=== PATIENT | male | born 1935 | race Caucasian/White ===

== ENCOUNTER 2019-01-14 14:14 | Emergency (ER) | payer MEDICARE ==
[~2019-01-14] VITALS: Ht 188 cm; Wt 87.1 kg
[~2019-01-14 14:14] MED LIST: BUPROPION HCL150 M2 PO; COQ-10100 MG PO; DOXAZOSIN MESYLA4 MG PO; LORAZEPAM1 MG PO; METFORMIN HCL500 MG PO; PANTOPRAZOLE SO40 MG PO; SIMVASTATIN20 MG PO; VITAMIN D1000 UNI1 PO
--- OUTSIDE RECORDS SUMMARY | 2019-01-14 14:18 | XMS REPORT | Summary of Care ---
Author Author [facility] Organization [facility] Address Unknown Phone Unavailable Encounter HQ Chidi(FIN) [id number] Date(s): 04/20/17 - 04/20/17 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 1right Allergies, Adverse Reactions, Alerts Substance Reaction Severity Status Cipro Active codeine Active Demerol HCl Active morphine Active propoxyphene Active Septra Active Medications No data available for this section Results No data available for this section Immunizations Given and Recorded Vaccine Date Status Refusal Reason influenza virus vaccine, inactivated 06/05/14 Given tetanus-diphtheria toxoids 01/21/11 Given Procedures Procedure Date Related Diagnosis Body Site Appendectomy CEIOL - Cataract extraction and insertion of intraocular lens1 Cystectomy2 Dilation of bladder3 Foot repair Hernia repair4 Vasectomy 1right and left 2excision of pilondial cyst 3hydrodistention 4umbilical Social History Social History Type Response Alcohol Past Smoking Status Former smoker; Type: Cigarettes; Started at age: 16.0; Stopped at age: 24; Exposure to Tobacco Smoke None; Cigarette Smoking Last 365 Days No; Reg Smoking Cessation Counseling No Assessment and Plan No data available for this section
--- OUTSIDE RECORDS SUMMARY | 2019-01-14 14:18 | XMS REPORT | Summary of Care ---
Author Organization Unknown Address Unknown Phone Unavailable Encounter HQ Kristan_quintin(AUGIE) [id number] Date(s): 03/23/14 - 03/23/14 [facility] [address] [place], [place] [address] [facility] Discharge Disposition: Home Physician Attending: Timmy Seaman MD Physician_Referring: Timmy Seaman MD Reason for Visit CKD 3 Problem List Condition Effective Dates Status Health Status Informant Anxiety(Confirmed) Active Chest Resolved pain(Confirmed) Diabetes Active mellitus(Confirmed) GERD Active (gastroesophageal reflux disease)(Confirmed) HTN - Active Hypertension(Confirm ed) Hyperlipemia(Confirm Active ed) Hypertonic Active bladder(Confirmed) Allergies, Adverse Reactions, Alerts Substance Reaction Severity Status Cipro Active codeine Active Demerol HCl Active methadone Active morphine Active propoxyphene Active Septra Active Medications No data available for this section Medications Administered During Your Visit No data available for this section Immunizations Vaccine Date Refusal Reason tetanus-diphtheria toxoids 01/21/11 Social History Social History Type Response Alcohol Use: Past Smoking Status Former smoker, Type: Cigarettes, Exposure to Tobacco Smoke None, Cigarette Smoking Last 365 Days No, Reg Smoking Cessation Counseling No
--- OUTSIDE RECORDS SUMMARY | 2019-01-14 14:18 | XMS REPORT | Summary of Care ---
Author Organization Unknown Address Unknown Phone Unavailable Encounter HQ Chidi(AUGIE) [id number] Date(s): 01/25/14 - 01/25/14 [facility] [address] [place], [place] [address] [facility] Discharge Disposition: Home Physician Attending: Carl Alarcon MD Physician_Referring: Carl Alarcon MD Reason for Visit ICD 600.00 596.51 788.31/CPT [id number] Vital Signs 1 2 3 Most recent to oldest [Reference Range]: 182.88 cm (01/18/14 10:14 AM) Height 97.0 DegF (01/18/14 10:50 AM) Temperature Oral [96.4-99.1 DegF] 111 mmHg (01/25/14 9:15 AM) 153 mmHg *HI* (01/25/14 9:00 AM) 179 mmHg *HI* (01/25/14 8:45 AM) Systolic Blood Pressure [90-140 mmHg] 86 mmHg (01/25/14 9:15 AM) 55 mmHg *LOW* (01/25/14 9:00 AM) 81 mmHg (01/25/14 8:45 AM) Diastolic Blood Pressure [60-90 mmHg] 11 BRMIN *LOW* (01/25/14 9:00 AM) 12 BRMIN *LOW* (01/25/14 8:45 AM) 13 BRMIN *LOW* (01/25/14 8:30 AM) Respiratory Rate [14-20 BRMIN] 77 bpm (01/25/14 7:23 AM) 69 bpm (01/18/14 10:50 AM) Peripheral Pulse Rate [60-100 bpm] 92.273 kg (01/18/14 10:14 AM) Weight 27.59 m2 (01/18/14 10:14 AM) Body Mass Index Problem List Condition Effective Dates Status Health Status Informant Anxiety(Confirmed) Active Chest Resolved pain(Confirmed) Diabetes Active mellitus(Confirmed) GERD Active (gastroesophageal reflux disease)(Confirmed) HTN - Active Hypertension(Confirm ed) Hyperlipemia(Confirm Active ed) Hypertonic Active bladder(Confirmed) Allergies, Adverse Reactions, Alerts Substance Reaction Severity Status Cipro Active codeine Active Demerol HCl Active methadone Active morphine Active propoxyphene Active Septra Active Medications acetaminophen 650 mg, 2 tab, Route: PO, Drug form: TAB, Q4H, Dosing Weight 92.273, kg, PRN [place] n 1-3/Temp > 100.4 F, Start date: 01/25/14 8:17:00, Duration: 30 day, Stop date: 02/24/14 8:16:00 Notes: Do not exceed 4 gm/day. (Same as: Tylenol) Start Date: 01/25/14 Stop Date: 01/25/14 Status: Discontinued cefTRIAXone 1 gm, Route: IVPB, ONCE, Dosing Weight 92.273, kg, Start date: 01/25/14 7:21:00, Stop date: 01/25/14 7:21:00 Start Date: 01/25/14 Stop Date: 01/25/14 Status: Completed ketorolac 15 mg, 1 mL, Route: IVP, Drug form: INJ, Q6H, Dosing Weight 92.273, kg, Start da te: 01/25/14 12:00:00, Duration: 6 doses or times, Stop date: 01/26/14 18:00:00 Notes: (Same as:Toradol) IV bolus must be given >15 seconds. Give IM administration slowly and deeply into the muscle. Not for use > 4 days. Start Date: 01/25/14 Stop Date: 01/25/14 Status: Discontinued Lactated Ringers Injection IV 1000 mL 1,000 mL, Rate: 25 ml/hr, Infuse over: 40 hr, Route: IV, Dosing Weight 92.273 kg , Total Volume: 1,000, Start date: 01/25/14 7:22:00, Duration: 30 day, Stop date : 02/24/14 7:21:00 Start Date: 01/25/14 Stop Date: 01/25/14 Status: Discontinued Results ELECTROLYTES Most recent to 1 oldest [Reference Range]: Sodium Lvl [135-145 140 mEq/L mEq/L] (01/18/14 10:45 AM) Potassium Lvl 4.4 mEq/L [3.5-5.1 mEq/L] (01/18/14 10:45 AM) Chloride Lvl [95-109 106 mEq/L mEq/L] (01/18/14 10:45 AM) CO2 [24-32 mEq/L] 25 mEq/L (01/18/14 10:45 AM) AGAP [10.0-20.0 13.4 mEq/L mEq/L] (01/18/14 10:45 AM) CHEM PANEL Most recent to 1 oldest [Reference Range]: Creatinine Lvl 1.3 mg/dL [0.5-1.4 mg/dL] (01/18/14 10:45 AM) eGFR 52 mL/min/1.73m2 1 *NA* (01/18/14 10:45 AM) BUN [7-22 mg/dL] 17 mg/dL (01/18/14 10:45 AM) Glucose Lvl [70-99 109 mg/dL 2 mg/dL] *HI* (01/18/14 10:45 AM) Calcium Lvl 8.7 mg/dL [8.5-10.5 mg/dL] (01/18/14 10:45 AM) 1Result Comment: The eGFR is calculated using the CKD-EPI formula. In most young, healthy individuals the eGFR will be >90 mL/min/1.73m2. The eGFR declines with age. An eGFR of 60-89 may be normal in some populations, particularly the elderly, for whom the CKD-EPI formula has not been extensively validated. Use of the eGFR is not recommended in the following populations: Individuals with unstable creatinine concentrations, including patients and those with serious co-morbid conditions. Patients with extremes in muscle mass or diet. The data above are obtained from the National Kid[employer] Disease Education Program ( NKDEP) which additionally recommends that when the eGFR is used in patients with extremes of body mass index for purposes of drug dosing, the eGFR should be mul tiplied by the estimated BMI. 2Interpretive Data: Adult reference range values reflect the clinical guidelines of the [employer] [place] [employer]. SPECIAL CHEMISTRY Most recent to 1 oldest [Reference Range]: PSA [0.00-4.00 1.48 ng/mL 3 ng/mL] (01/18/14 10:45 AM) 3Interpretive Data: 0-4 ng/ml is clinically accepted reference range from the [employer] in 1997 for Total PSA. A PSA value in the range of 0.1 to 0.6 ng/mL is indeterminate if being used as an indicator of recurrent or residual disease. URINE AND STOOL Most recent to 1 oldest [Reference Range]: UA Turbidity [Clear] Clear (01/18/14 10:15 AM) UA Color Ltyellow *NA* (01/18/14 10:15 AM) UA pH [5.0-8.0] 5.0 (01/18/14 10:15 AM) UA Spec Grav 1.015 [<=1.030] (01/18/14 10:15 AM) UA Glucose [Negative Negative mg/dL mg/dL] *NA* (01/18/14 10:15 AM) UA Blood [Negative] Negative (01/18/14 10:15 AM) UA Ketones [Negative Negative mg/dL mg/dL] *NA* (01/18/14 10:15 AM) UA Protein [Negative Negative mg/dL mg/dL] (01/18/14 10:15 AM) UA Urobilinogen <=1.0 mg/dL [0.1-1.0 mg/dL] *NA* (01/18/14 10:15 AM) UA Bili [Negative] Negative *NA* (01/18/14 10:15 AM) UA Leuk Est Negative [Negative] (01/18/14 10:15 AM) UA Nitrite Negative [Negative] (01/18/14 10:15 AM) UA WBC [0-5 /HPF] <1 /HPF (01/18/14 10:15 AM) UA RBC [0-2 /HPF] 1 /HPF (01/18/14 10:15 AM) UA Sq Epi None Seen *NA* (01/18/14 10:15 AM) HEMATOLOGY Most recent to 1 oldest [Reference Range]: WBC [3.7-10.4 K/CMM] 5.2 K/CMM (01/18/14 10:45 AM) RBC [4.70-6.10 4.21 M/CMM M/CMM] *LOW* (01/18/14 10:45 AM) Hgb [14.0-18.0 g/dL] 13.6 g/dL *LOW* (01/18/14 10:45 AM) Hct [42.0-54.0 %] 39.9 % *LOW* (01/18/14 10:45 AM) MCV [80.0-94.0 fL] 94.6 fL *HI* (01/18/14 10:45 AM) MCH [27.0-31.0 pg] 32.2 pg *HI* (01/18/14 10:45 AM) MCHC [32.0-36.0 34.0 g/dL g/dL] (01/18/14 10:45 AM) RDW [11.5-14.5 %] 12.6 % (01/18/14 10:45 AM) Platelet [133-450 196 K/CMM K/CMM] (01/18/14 10:45 AM) MPV [7.4-10.4 fL] 8.4 fL (01/18/14 10:45 AM) Segs [45.0-75.0 %] 66.3 % (01/18/14 10:45 AM) Lymphocytes 19.7 % [20.0-40.0 %] *LOW* (01/18/14 10:45 AM) Monocytes [2.0-12.0 9.9 % %] (01/18/14 10:45 AM) Eosinophils [0.0-4.0 3.4 % %] (01/18/14 10:45 AM) Basophils [0.0-1.0 0.7 % %] (01/18/14 10:45 AM) Segs-Bands # 3.5 K/CMM [1.5-8.1 K/CMM] (01/18/14 10:45 AM) Lymphocytes # 1.0 K/CMM [1.0-5.5 K/CMM] (01/18/14 10:45 AM) Monocytes # [0.0-0.8 0.5 K/CMM K/CMM] (01/18/14 10:45 AM) Eosinophils # 0.2 K/CMM [0.0-0.5 K/CMM] (01/18/14 10:45 AM) Basophils # [0.0-0.2 0.0 K/CMM K/CMM] (01/18/14 10:45 AM) Medications Administered During Your Visit No data available for this section Immunizations Vaccine Date Refusal Reason tetanus-diphtheria toxoids 01/21/11 Social History Social History Type Response Alcohol Use: Past Smoking Status Former smoker, Type: Cigarettes, Exposure to Tobacco Smoke None, Cigarette Smoking Last 365 Days No, Reg Smoking Cessation Counseling No
--- OUTSIDE RECORDS SUMMARY | 2019-01-14 14:18 | XMS REPORT | Continuity of Care Document ---
Author Author Lisa maria elena [facility] Interface Address Unknown Phone Unavailable Problems Problem Status Onset Date Classification Date Reported Comments Source CHEST PAIN Active 07/12/2018 [facility] Pain in left wrist 04/28/2018 11/08/2018 [facility] M25.539 Active 04/21/2018 [facility] R10.9 K40.90 Active 04/14/2017 [facility] DX: C64.1=MALIGNANT NEOPLASM OF RIGHT K Active 09/16/2016 [facility] C64.1 Active 08/20/2015 [facility] ABD PAIN/KIDNEY CA Active 01/04/2015 [facility] 189.0 RENAL CA Active 08/14/2014 [facility] Discharge Diagnosis: Polyuria 07/02/2014 07/05/2014 [facility] BACK PAIN Active 07/02/2014 [facility] UNK Active 05/09/2014 [facility] POST-OP RIGHT ROBOTIC PARTIAL NEPHRECTOM Active 05/09/2014 [facility] CHRONIC KIDNEY DISEAGE STAGE 3 Active 04/24/2014 [facility] 585.3 CHR KIDNEY DIS STAGE III Active 04/05/2014 [facility] CKD 3 Active 03/14/2014 [facility] ICD 600.00 596.51 788.31/CPT 20058 34386 Active 01/09/2014 [facility] Anxiety Active Problem 11/08/2018 [facility] Chest pain Resolved Problem 11/08/2018 [facility] Diabetes mellitus Active Problem 11/08/2018 [facility] GERD (<span ID="[id number]">Confirmed</span>) Active Problem 11/08/2018 [facility] HTN - Hypertension Active Problem 11/08/2018 [facility] Hyperlipemia Active Problem 08/28/2015 [facility] Hypertonic bladder Active Problem 11/08/2018 [facility] Hyperlipemia Active Problem 11/08/2018 [facility] Renal mass<sup>1</sup> Active Problem 11/08/2018 [facility] Other specified soft tissue disorders 11/08/2018 [facility] Other cyst of bone, other site 11/08/2018 [facility] SIMRAN KIDNEY Active [facility] LEFT ARM, WRIST Active [facility] MALIGNANT NEOPLASM OF RIGHT KIDNEY, EXCE Active [facility] URGENCY OF URINATION Active [facility] BENIGN PROSTATIC HYPERPLASIA WITH LOWER Active [facility] UNSPECIFIED ABDOMINAL PAIN Active [facility] UNIL INGUINAL HERNIA, W/O OBST OR GANGR, Active [facility] Medications Medication Details Route Status Patient Instructions Ordering Provider Order Date Source Senna S oral tablet 2 tab, PO, Bedtime, # 90 tab, 0 Refill(s) Active 06/05/2014 [facility] Acetaminophen 325 MG / Hydrocodone Bitartrate 5 MG Oral Tablet [Dodge 5/325] 1 tab, PO, Q4-6H, as needed for pain, # 30 tab, 0 Refill(s) Active 06/05/2014 [facility] Calcium Chloride 0.0014 MEQ/ML / Potassium Chloride 0.004 MEQ/ML / Sodium Chloride 0.103 MEQ/ML / Sodium Lactate 0.028 MEQ/ML Injectable Solution 1,000 mL, Rate: 125 ml/hr, Infuse over: 8 hr, Route: IV, Dosing Weight 87.727 kg, Total Volume: 1,000, Start date: 06/04/14 11:13:00, Duration: 30 day, Stop date: 07/04/14 11:12:00 Inactive 06/04/2014 [facility] Doxazosin 4 mg, 1 tab, Route: PO, Drug form: TAB, Daily, Dosing Weight 87.727, kg, Start date: 06/01/14 9:00:00, Duration: 30 day, Stop date: 06/30/14 9:00:00Notes: (Same as: Sam) No Longer Active 06/01/2014 [facility] sennosides, ALF 8.6 MG Oral Tablet 17.2 mg, 2 tab, Route: PO, Drug Form: TAB, Dosing Weight 87.727, kg, BID, Start date: 06/01/14 9:00:00, Duration: 30 day, Stop date: 06/30/14 17:00:00Notes: (Same as: Senokot) No Longer Active 06/01/2014 [facility] Enoxaparin 40 mg, 0.4 mL, Route: SUB-Q, Drug form: INJ, Daily, Dosing Weight 87.727, kg, Start date: 06/01/14 6:00:00, Duration: 30 day, Stop date: 06/30/14 6:00:00Notes: (Same as: Lovenox) No Longer Active 06/01/2014 [facility] Simvastatin 20 mg, 1 tab, Route: PO, Drug form: TAB, Bedtime, Dosing Weight 87.727, kg, Start date: 05/31/14 21:00:00, Duration: 30 day, Stop date: 06/29/14 21:00:00Notes: (Same as: Zocor) No Longer Active 06/01/2014 [facility] Docusate Sodium 100 MG Oral Capsule 100 mg, 1 cap, Route: PO, Drug form: CAP, BID, Dosing Weight 87.727, kg, Start date: 05/31/14 17:00:00, Duration: 30 day, Stop date: 06/30/14 9:00:00Notes: (Same as: Colace) (Do Not Crush) No Longer Active 05/31/2014 [facility] pantoprazole 40 mg, 1 tab, Route: PO, Drug form: ECTAB, Before Dinner, Dosing Weight 87.727, kg, Start date: 05/31/14 16:30:00, Duration: 30 day, Stop date: 06/29/14 16:30:00Notes: Tablet should not be chewed or crushed. (Same as: Protonix) No Longer Active 05/31/2014 [facility] Restoril 7.5 mg, 1 cap, Route: PO, Drug form: CAP, Bedtime, PRN Insomnia, Start date: 05/31/14 16:17:00, Duration: 30 day, Stop date: 06/30/14 16:16:00Notes: (Same As: Restoril) No Longer Active 05/31/2014 [facility] 10 ML Cefazolin 100 MG/ML Prefilled Syringe 1 gm, 100 mL, Route: IVPB, Drug form: INJ, Q8H, Dosing Weight 87.727, kg, Start date: 05/31/14 16:00:00, Duration: 1 doses or times, Stop date: 05/31/14 16:00:00 Inactive 05/31/2014 [facility] Insulin, Regular, Pork 5 unit, Route: IV, ONCE, Dosing Weight 87.727, kg, Start date: 05/31/14 13:54:00, Stop date: 05/31/14 13:54:00 Inactive 05/31/2014 [facility] Ancef 2 gm, Route: IVPB, ONCE, Dosing Weight 87.727, kg, Start date: 05/31/14 13:44:00, Duration: 1 doses or times, Stop date: 05/31/14 13:44:00 Inactive 05/31/2014 [facility] Ondansetron 4 mg, Route: IVP, ONCE, Dosing Weight 87.727, kg, PRN Nausea & Vomiting, Start date: 05/31/14 13:14:00 Inactive 05/31/2014 [facility] Promethazine 6.25 mg, 0.25 mL, Route: IVPB, Drug form: INJ, ONCE, Dosing Weight 87.727, kg, PRN Nausea & Vomiting, Start date: 05/31/14 13:14:00Notes: Do not give IV push. (Same as: Phenergan) No Longer Active 05/31/2014 [facility] Calcium Chloride 0.0014 MEQ/ML / Potassium Chloride 0.004 MEQ/ML / Sodium Chloride 0.103 MEQ/ML / Sodium Lactate 0.028 MEQ/ML Injectable Solution 1,000 mL, Rate: 125 ml/hr, Infuse over: 8 hr, Route: IV, Dosing Weight 87.727 kg, Total Volume: 1,000, Start date: 05/31/14 13:14:00, Duration: 30 day, Stop date: 06/30/14 13:13:00 No Longer Active 05/31/2014 [facility] Ketorolac 30 mg, 1 mL, Route: IVP, Drug form: INJ, ONCE, Dosing Weight 87.727, kg, Start date: 05/31/14 13:14:00, Duration: 1 doses or times, Stop date: 05/31/14 13:14:00Notes: (Same as:Toradol) IV bolus must be given >15 seconds. Give IM administration slowly and deeply into the muscle. Not for use > 4 days Inactive 05/31/2014 [facility] Fentanyl 25 microgram, 0.5 mL, Route: IVP, Drug form: INJ, Q5Min, Dosing Weight 87.727, kg, PRN Pain Score 4-6, Start date: 05/31/14 13:14:00, Duration: 4 doses or times, Stop date: Limited # of timesNotes: (Same as: Sublimaze) Preservative free. No Longer Active 05/31/2014 [facility] Acetaminophen 1,000 mg, 100 mL, Route: IVPB, Drug form: INJ, ONCE, Dosing Weight 87.727, kg, PRN Pain Score 1-3, Start date: 05/31/14 13:14:00, Duration: 1 doses or times, Stop date: Limited # of timesNotes: Infuse over 15 minutes Do not exceed 4gm/day of acetaminophen No Longer Active 05/31/2014 [facility] Naloxone 0.04 mg, 0.1 mL, Route: IVP, Drug form: INJ, Q2MIN, Dosing Weight 87.727, kg, PRN Narcotic Reversal, Start date: 05/31/14 13:14:00, Duration: 8 doses or times, Stop date: Limited # of timesNotes: Same as Narcan No Longer Active 05/31/2014 [facility] Hydromorphone 0.5 mg, 0.5 mL, Route: IVP, Drug form: INJ, Q5Min, Dosing Weight 87.727, kg, PRN Pain Score 7-10, Start date: 05/31/14 13:14:00, Duration: 4 doses or times, Stop date: Limited # of times No Longer Active 05/31/2014 [facility] Diphenhydramine 12.5 mg, 0.25 mL, Route: IVP, Drug form: INJ, Q6H, Dosing Weight 87.727, kg, PRN Itching, Start date: 05/31/14 13:14:00, Duration: 30 day, Stop date: 06/30/14 13:13:00Notes: (Same as: Benadryl) No Longer Active 05/31/2014 [facility] Flumazenil 0.2 mg, 2 mL, Route: IVP, Drug form: INJ, PRN, Dosing Weight 87.727, kg, PRN Benzodiazepine Reversal, Initial dose, Start date: 05/31/14 13:14:00, Duration: 30 day, Stop date: 06/30/14 13:13:00Notes: (Same as: Romazicon) No Longer Active 05/31/2014 [facility] Bupropion 150 mg, 1 tab, Route: PO, Drug form: ERTAB, Q24H, Dosing Weight 87.727, kg, Start date: 05/31/14 13:00:00, Duration: 30 day, Stop date: 06/29/14 13:00:00Notes: (Do not crush) (Same As: Wellbutrin SR) No Longer Active 05/31/2014 [facility] Dilaudid 0.5 mg, 0.5 mL, Route: IV, Drug form: INJ, Q3H, Dosing Weight 87.727, kg, PRN Pain Score 7-10, Start date: 05/31/14 12:48:00, Duration: 30 day, Stop date: 06/30/14 12:47:00 No Longer Active 05/31/2014 [facility] normal saline 0.9% IV 1,000 mL 1,000 mL, Rate: 125 ml/hr, Infuse over: 8 hr, Route: IV, Dosing Weight 87.727 kg, Total Volume: 1,000, Start date: 05/31/14 12:46:00, Duration: 30 day, Stop date: 06/30/14 12:45:00 No Longer Active 05/31/2014 [facility] Lorazepam 1 mg, 1 tab, Route: PO, Drug form: TAB, TID, Dosing Weight 87.727, kg, PRN Anxiety, Start date: 05/31/14 12:43:00, Duration: 30 day, Stop date: 06/30/14 12:42:00Notes: (Same as: Ativan) No Longer Active 05/31/2014 [facility] Insulin, Aspart, Human 2 unit, 0.02 mL, Route: SUB-Q, Drug form: SOLN, TID-Before Meals, Dosing Weight 87.727, kg, PRN Blood Glucose Results, Start date: 05/31/14 12:34:00, Duration: 30 day, Stop date: 06/30/14 12:33:00Notes: Roll in palms of hands gently; Do not shake vigorously. (Same as: NovoLOG) "single patient use only" Stable for 28 days at room temperature. Expires in days from Date No Longer Active 05/31/2014 [facility] Saline Flush 0.9% 10 ml, Route: IVP, Drug Form: INJ, Dosing Weight 87.727, kg, PRN, PRN Line Flush, Start date: 05/31/14 12:34:00, Duration: 30 day, Stop date: 06/30/14 12:33:00Notes: (Same as: BD Posiflush) No Longer Active 05/31/2014 [facility] Promethazine 12.5 mg, 0.5 mL, Route: IVPB, Q4H, Dosing Weight 87.727, kg, PRN Nausea & Vomiting, Start date: 05/31/14 12:34:00, Duration: 30 day, Stop date: 06/30/14 12:33:00Notes: Do not give IV push. (Same as: Phenergan) No Longer Active 05/31/2014 [facility] Dulcolax Laxative 5 mg, 1 tab, Route: PO, Drug form: ECTAB, Q24H, Dosing Weight 87.727, kg, PRN Constipation, Start date: 05/31/14 12:34:00, Duration: 30 day, Stop date: 06/30/14 12:33:00Notes: (Same As: Dulcolax, Correctol) (Do Not Crush) "Do Not Crush" No Longer Active 05/31/2014 [facility] Ondansetron 4 mg, 2 mL, Route: IVP, Drug form: INJ, Q6H, Dosing Weight 87.727, kg, PRN Nausea & Vomiting, Start date: 05/31/14 12:34:00, Duration: 30 day, Stop date: 06/30/14 12:33:00Notes: (Same as: Zofran) No Longer Active 05/31/2014 [facility] Aluminum Hydroxide 40 MG/ML / Magnesium Hydroxide 40 MG/ML / Simethicone 4 MG/ML Oral Suspension 30 mL, Route: PO, Drug Form: SUSP, Dosing Weight 87.727, kg, Q4H, PRN Indigestion, Start date: 05/31/14 12:34:00, Duration: 30 day, Stop date: 06/30/14 12:33:00Notes: (aluminum hydroxide- magnesium hyd-simethicone [id number]/5ml 30 ml ud YONATAN) No Longer Active 05/31/2014 [facility] Acetaminophen 325 MG / Hydrocodone Bitartrate 5 MG Oral Tablet 1 tab, Route: PO, Drug Form: TAB, Dosing Weight 87.727, kg, Q4H, PRN Pain Score 4-6, Start date: 05/31/14 12:34:00, Duration: 30 day, Stop date: 06/30/14 12:33:00Notes: (Same as: Dodge 325/5) Do not exceed 4gm/day of acetaminophen. No Longer Active 05/31/2014 [facility] zolpidem 5 mg, Route: PO, Drug form: TAB, Bedtime, Dosing Weight 87.727, kg, PRN Insomnia, Start date: 05/31/14 12:34:00, Duration: 30 day, Stop date: 06/30/14 12:33:00 Inactive 05/31/2014 [facility] Diphenhydramine 25 mg, 1 tab, Route: PO, Drug form: TAB, Bedtime, Dosing Weight 87.727, kg, PRN Insomnia, Start date: 05/31/14 12:34:00, Duration: 30 day, Stop date: 06/30/14 12:33:00 No Longer Active 05/31/2014 [facility] Ancef 2 gm, Route: IVPB, ONCE, Dosing Weight 87.727, kg, Start date: 05/31/14 7:56:00, Stop date: 05/31/14 7:56:00 Inactive 05/31/2014 [facility] Calcium Chloride 0.0014 MEQ/ML / Potassium Chloride 0.004 MEQ/ML / Sodium Chloride 0.103 MEQ/ML / Sodium Lactate 0.028 MEQ/ML Injectable Solution 1,000 mL, Rate: 25 ml/hr, Infuse over: 40 hr, Route: IV, Dosing Weight 87.727 kg, Total Volume: 1,000, Start date: 05/31/14 7:13:00, Duration: 30 day, Stop date: 06/30/14 7:12:00 Inactive 05/31/2014 [facility] Mannitol 12.5 gm, 50 mL, Route: IVPB, Drug form: INJ, ONCE, Dosing Weight 87.727, kg, Start date: 05/31/14 6:03:00, Stop date: 05/31/14 6:03:00Notes: (Same as: Osmitrol) Infuse through 5 micron or smaller filter Inactive 05/31/2014 [facility] Vitamin D3 5000 intl units oral capsule 5,000 IntlUnit=1 cap, PO, Daily, 0 Refill(s) Active 05/24/2014 [facility] buPROPion 150 mg/24 hours oral extended release tablet 150 mg=1 tab, PO, Q24H, # 30 tab, 0 Refill(s) Active 05/24/2014 [facility] Metformin PO, Daily, 0 Refill(s) No Longer Active 05/24/2014 [facility] Ketorolac 15 mg, 1 mL, Route: IVP, Drug form: INJ, Q6H, Dosing Weight 92.273, kg, Start date: 01/25/14 12:00:00, Duration: 6 doses or times, Stop date: 01/26/14 18:00:00Notes: (Same as:Toradol) IV bolus must be given >15 seconds. Give IM administration slowly and deeply into the muscle. Not for use > 4 days. Inactive 01/25/2014 [facility] Acetaminophen 650 mg, 2 tab, Route: PO, Drug form: TAB, Q4H, Dosing Weight 92.273, kg, PRN Pain 1-3/Temp > 100.4 F, Start date: 01/25/14 8:17:00, Duration: 30 day, Stop date: 02/24/14 8:16:00Notes: Do not exceed 4 gm/day. (Same as: Tylenol) Inactive 01/25/2014 [facility] Calcium Chloride 0.0014 MEQ/ML / Potassium Chloride 0.004 MEQ/ML / Sodium Chloride 0.103 MEQ/ML / Sodium Lactate 0.028 MEQ/ML Injectable Solution 1,000 mL, Rate: 25 ml/hr, Infuse over: 40 hr, Route: IV, Dosing Weight 92.273 kg, Total Volume: 1,000, Start date: 01/25/14 7:22:00, Duration: 30 day, Stop date: 02/24/14 7:21:00 Inactive 01/25/2014 [facility] Ceftriaxone 1 gm, Route: IVPB, ONCE, Dosing Weight 92.273, kg, Start date: 01/25/14 7:21:00, Stop date: 01/25/14 7:21:00 Inactive 01/25/2014 [facility] Allergies, Adverse Reactions, Alerts Substance Category Reaction Severity Reaction type Status Date Reported Comments Source Cipro Assertion Propensity to adverse reactions to substance Active [facility] codeine Assertion Drug allergy Active [facility] Demerol HCl Assertion Drug allergy Active [facility] methadone Assertion Drug allergy Active [facility] morphine Assertion Drug allergy Active [facility] propoxyphene Assertion Drug allergy Active [facility] Septra Assertion Drug allergy Active [facility] Immunizations Immunization Date Given Site Status Last Updated Comments Source influenza virus vaccine, inactivated 06/05/2014 Left deltoid completed Rae [facility] tetanus-diphtheria toxoids 01/22/2011 Right deltoid completed Chaun[facility] tetanus-diphtheria toxoids 01/22/2011 Right deltoid completed [facility] Results Order Name Results Value Reference Range Date Interpretation Comments Source Abdomen RUQ US Abdomen RUQ US Clinical Indication: Abdominal pain. Comparison: Prior ultrasound study dated 04/20/2017. TECHNIQUE: Grayscale and limited color sonographic evaluation of the right upper quadrant of the abdomen and gallbladder region was performed with standard technique. FINDINGS: LIVER: The visualized liver shows normal contour, size 13.3 cm, and morphology with normal parenchymal echo texture. No discrete hepatic mass. The limited visualized portal vein is grossly patent. BILE DUCTS: The intrahepatic and extrahepatic bile ducts are not dilated with the common bile duct measuring 5 mm. The distal common bile duct is not well seen. GALLBLADDER: Mobile gallbladder calculus within the neck measuring up to 1 cm. No gallbladder wall thickening or pericholecystic fluid. As per the technologist, Rees sign is negative. PANCREAS: Visualized pancreas appears unremarkable. Distal body and tail of pancreas is not visualized due to shadowing from overlying structures. KIDNEY: The right kidney measures 9.9 cm in length. There is normal renal contour and morphology, with normal parenchymal echotexture. There is no hydronephrosis. ASCITES: There is no right upper quadrant abdominal ascites. IMPRESSION: 1. Cholelithiasis. No evidence of cholecystitis. No biliary dilation. AGUILA: DANYA 07/12/2018 - - Read by: Shine Fields MD Dictated Date/time: 07/12/18 16:22 Electronically Signed by: Shine Fields MD 07/12/18 16:26 FINAL REPORT [facility] Chest 2 views DX Chest 2 views DX Clinical Indication: Chest pain. Comparison: Chest x-ray 09/24/2016 Technique: Frontal and lateral views of the chest was obtained. Findings: Lines and Tubes: None. Lungs and Pleura: No airspace opacification or consolidation. No pleural effusion or pneumothorax. Heart and Mediastinum: The cardiomediastinal silhouette is normal. Bones: No acute osseous abnormality. IMPRESSION: No acute cardiopulmonary abnormality. SL: [id number] 07/12/2018 - - Read by: Jaxson Bennett MD Dictated Date/time: 07/12/18 12:04 Electronically Signed by: Jaxson Bennett MD 07/12/18 12:04 FINAL REPORT [facility] Wrist complete DX Wrist complete DX Patient Name: LESLY MENDEZ : 1935 Age: 83 years, Male MR: [id number] Study: Wrist complete DX 04/21/2018 12:30 PM CDT Examination: Wrist, left, 3 views Indication: Wrist pain. Clinical information: - M25.539 Pain in unspecified wrist. Comparison: None Findings: Bones: No acute displaced fracture. Small cortical-based cystic lesion is present in the radial aspect of the distal diaphysis of the left radius. Joints: Joint space narrowing is present in the radiocarpal joint. No dislocation. No effusion. Soft tissues: Soft tissue swelling is present in the radial aspect of the wrist. IMPRESSION: Soft tissue swelling in the radial aspect of the wrist. Cystic lesion in the distal radius, likely nonaggressive. SL: [id number] 04/21/2018 - - Read by: Sachin Menendez MD Dictated Date/time: 04/21/18 16:11 Electronically Signed by: Sachin Menendez MD 04/21/18 16:17 FINAL REPORT [facility] Pelvis Complete US Pelvis Complete US Pelvis Complete US CLINICAL HX: K40.90 Unilateral inguinal hernia, without obstruction or gangrene, not specified as recurrent - K40.90 Unilateral inguinal hernia, without obstruction or gangrene, not specified as recurrent; COMPARISON: None TECHNIQUE: Multiple static transabdominal images of the pelvis are submitted for review. FINDINGS: The bladder demonstrates normal morphology. No bladder wall thickening. Both right ureteral jet and left ureteral jet are visualized. Prostate gland appears to be enlarged. Evaluation of the right lower abdomen is limited due to postsurgical change from hernia repair and shadowing from bowel loops. No ascites is noted in the right lower abdomen or left lower abdomen. IMPRESSION: Limited evaluation of right lower abdomen as discussed above. If there is clinical concern for residual or recurrent hernia in the right lower abdomen, inguinal region, or any other bowel abnormality further evaluation with CT scan of abdomen and pelvis with IV and oral contrast is recommended. Enlarged prostate gland. Correlation with clinical exam and PSA is recommended. SL: [id number] 04/20/2017 - - Read by: Portillo Emmanuel MD Dictated Date/time: 04/20/17 11:33 Electronically Signed by: Portillo Emmanuel MD 04/20/17 11:45 FINAL REPORT [facility] complete US Abdomen complete US Abdomen complete US TECHNIQUE: Grayscale and color Doppler images of the abdomen were performed with a curvilinear transducer. Static images are submitted for review. CLINICAL HX: K40.90 Unilateral inguinal hernia, without obstruction or gangrene, not specified as recurrent - R10.9 Unspecified abdominal pain; COMPARISON: 09/24/2016 FINDINGS: LIVER: The liver is normal in size and echogenicity. No focal hepatic lesion is visualized. Mild hepatomegaly with sagittal length at 16.6 cm. GALL BLADDER AND BILE DUCTS: Multiple gallstones are visualized in the gallbladder. CBD is mildly dilated and measures 8 mm. PANCREAS: Pancreas is largely obscured by bowel gas. Visualized portion of the pancreas is unremarkable. SPLEEN: Spleen is normal in size. KIDNEYS: There is mild irregularity along the inferior pole right kidney. Findings consistent with patient's history of partial nephrectomy. No residual mass is noted. Left kidney demonstrates normal morphology. No hydronephrosis on either side. Maximal sagittal diameter of the right kidney is 9.5 cm and the left kidney is 12.3 cm. VASCULAR: Aorta and IVC are largely obscured due to midline bowel gas. ASCITES: No free fluid is present in the upper abdomen. No significant effusion is noted on either side. IMPRESSION: Cholelithiasis. Mild dilation of CBD. Further evaluation may be performed with MRCP as clinically indicated. Mild hepatomegaly. Postoperative changes inferior aspect of right kidney. No residual or recurrent mass is noted. No other significant sonographic abnormality is noted in the abdomen. SL: [id number] 04/20/2017 - - Read by: Portillo Emmanuel MD Dictated Date/time: 04/20/17 11:05 Electronically Signed by: Portillo Emmanuel MD 04/20/17 11:19 FINAL REPORT [facility] Renal Stone CT Renal Stone CT Renal Stone CT Age: 81 years Male Clinical Indication: C64.1 Malignant neoplasm of right kidney, except renal pelvis, N40.1 Enlarged prostate with lower urinary tract symptoms, R39.15 Urgency of urination, pt states he cancer removed from right kidney 05/29 and this is a follow up; Comparison: None TECHNIQUE: Noncontrasted helical imaging was performed from the kidneys through the symphysis as a renal stone protocol. Multiplanar reformations are available. CT Radiation Dose: QYB=955 mGy-cm FINDINGS: This examination is limited for the evaluation of solid organs and vascular structures due to withheld intravenous contrast -- the standard for urinary calculus assessment CT. KIDNEYS: No urinary calculi, hydronephrosis or perinephric stranding. The renal contours are generally normal. There is some mild extrarenal pelvis formation present on the left. Lower pole the right kidney there are some surgical clips and irregularity consistent with previous partial nephrectomy. LOWER CHEST: The lung bases are clear. SOLID ORGANS: The visualized liver, spleen, pancreas, and adrenal glands are normal. There is a small calculus in the neck of the gallbladder. BOWEL: Some diverticulosis is present in the descending and sigmoid colon. PERITONEUM: No free intraperitoneal fluid or air. RETROPERITONEUM: No adenopathy. Aorta is mildly atherosclerotic below the renal vessels. PELVIS: The prostate gland is enlarged and mildly heterogeneous, measuring 5.2 x 6.4 x 6.4 cm. The urinary bladder is normal. MUSCULOSKELETAL: Advanced degenerative spondylosis is present in the lumbar spine with multiple levels of degenerative narrowing of the disc intervals. There is also marked marginal spur formation. There is a degenerative anterolisthesis of L3 with respect to L4 which is grade I. IMPRESSION: 1. Degenerative spondylosis most severe at L3-L4 followed by L5-S1 and L4-L5. 2. Degenerative anterolisthesis of L3 with respect to L4. 3. Prostate enlargement. 4. Sigmoid diverticulosis. 5. Cholelithiasis. SL: [id number] 09/24/2016 - - Read by: Zeyad Jean MD Dictated Date/time: 09/24/16 16:23 Electronically Signed by: Zeyad Jean MD 09/24/16 16:39 FINAL REPORT [facility] Chest 2 views DX Chest 2 views DX Patient Name: LESLY MENDEZ : 1935; Age: 81 years Male MR: [id number] Study: Chest 2 views DX Order Time: 09/24/2016 9:44 AM [employer]OC[employer] CLINICAL INDICATION: C64.1 Malignant neoplasm of right kidney, except renal pelvis R39.15 Urgency of urination N40.1 Enlarged prostate with lower urinary tract symptoms ADDITIONAL HISTORY: None COMPARISON: Chest radiograph on 08/25/2015 FINDINGS: Lines: None. Lungs: The lungs are grossly clear. Mediastinum: The cardiac silhouette is within normal limits of size. Midline trachea. Bones and soft tissues: Unremarkable. IMPRESSION: No acute cardiopulmonary abnormalities. SL: [id number] 09/24/2016 - - Read by: Conor Ramirez MD Dictated Date/time: 09/24/16 10:27 Electronically Signed by: Conor Ramirez MD 09/24/16 10:27 FINAL REPORT [facility] Abdomen/Pelvis wo IV contrast CT Abdomen/Pelvis wo IV contrast CT CT Abdomen without Contrast, CT Pelvis without Contrast: TECHNIQUE: Contiguous transaxial images of the abdomen and pelvis were performed from the lung bases to the superior pubic rami without IV or oral contrast. COMPARISON: 08/22/2014 CLINICAL HX: Partial right nephrectomy for renal adenocarcinoma CT ABDOMEN: Lower Chest: Mild right basilar scarring. No consolidation or effusion. GI Tract: Small right inguinal hernia containing portion of the colon. Sigmoid diverticulosis. No CT signs for obstruction. There is no evidence for free fluid or free air in the abdomen. Tract: Postoperative changes are noted along the lower pole of right kidney. There may be fat necrosis in the adjacent infrarenal fat. Overall appearance has not changed from previous CT study. No gross new mass is visualized. Stable parapelvic cysts, left kidney. No significant retroperitoneal lymphadenopathy is noted. Abdominal Viscera: Discounting the limitation of lack of IV contrast, no gross abnormality is visualized in the liver, spleen, pancreas, both adrenals and the gall bladder. Vasculature: Aorta demonstrates normal morphology. Bone and Soft tissues: Lumbar spondylosis. No other significant bony abnormality is noted. CT PELVIS: Persistent enlargement of prostate gland. Mild bladder wall thickening. No free fluid is present in the pelvis IMPRESSION: Postoperative changes related to resection of inferior pole mass involving in the right kidney are stable from previous study. Question fat necrosis in the adjacent infrarenal fat. No gross evidence for recurrent mass. Small right inguinal hernia containing portion of ascending colon, unchanged in appearance from previous study. Extensive enlargement of prostate gland. Mild bladder wall thickening, unchanged from previous study. No new findings are noted in comparison to previous CT study. SL:13 08/29/2015 - - Read by: Portillo Emmanuel MD Dictated Date/time: 08/28/15 16:06 Electronically Signed by: Portillo Emmanuel MD 08/28/15 16:18 FINAL REPORT [facility] Chest 2 views DX Chest 2 views DX PA and LATERAL CHEST (2 views) HISTORY: Abnormal chest sounds A prior study of 01/09/2015 was reviewed. FINDINGS: The lungs are clear. There is minimal linear scarring or atelectasis in the right base. There is no evidence of an active or acute process within the chest. There are no pleural effusions. The heart and pulmonary vasculature are within normal limits. The regional skeleton is unremarkable. CONCLUSION: 1. No active disease. Coding: Chest 2 views CPT Code: 35400 SL: 13 Cipriano Moy M.D. 08/25/2015 - - Read by: Cipriano Moy MD Dictated Date/time: 08/25/15 08:34 Electronically Signed by: Cipriano Moy MD 08/25/15 08:34 FINAL REPORT [facility] Complete US Pelvis Complete US MULTIPLE STUDIES REASON FOR EXAM: See Clinic Indication CLINICAL INFORMATION: abd pain HISTORY: Lower abdominal pain, history right kidney cancer COMPARISON: CT abdomen/pelvis dated 08/22/2014 ABDOMINAL ULTRASOUND: The pancreas is obscured by bowel gas. The proximal aorta and proximal inferior vena cava appear normal on grayscale imaging. The liver size, shape, and echotexture is normal. There is no intrahepatic ductal dilation. The gallbladder demonstrates several mobile sludge balls. The common hepatic duct measures 6 mm. The right kidney measures 9.9 x 5.3 x 5.5 cm. The left kidney measures 11.7 x 5.6 x 4.9 cm. Right renal cortical scarring is again noted. A left renal parapelvic cyst is again noted. There is normal corticomedullary differentiation, there is no hydronephrosis. The spleen appears normal and measures 10.0 cm in long axis. TRANSABDOMINAL PELVIC ULTRASOUND The urinary bladder appears normal. No mass is seen in the pelvis. No pelvic free fluid. The prostate gland is enlarged and measures 4.9 x 4.2 x 5.2 cm. IMPRESSION: 1. No acute abnormality. 2. Gallbladder sludge balls. 3. Right renal cortical scarring. 4. Left renal parapelvic cyst. 5. Prostatomegaly. SL: 01/09/2015 - - Read by: Wilmar Courtney MD Dictated Date/time: 01/09/15 11:07 Electronically Signed by: Wilmar Courtney MD 01/09/15 11:15 FINAL REPORT [facility] Abdomen complete US Abdomen complete US MULTIPLE STUDIES REASON FOR EXAM: See Clinic Indication CLINICAL INFORMATION: abd pain HISTORY: Lower abdominal pain, history right kidney cancer COMPARISON: CT abdomen/pelvis dated 08/22/2014 ABDOMINAL ULTRASOUND: The pancreas is obscured by bowel gas. The proximal aorta and proximal inferior vena cava appear normal on grayscale imaging. The liver size, shape, and echotexture is normal. There is no intrahepatic ductal dilation. The gallbladder demonstrates several mobile sludge balls. The common hepatic duct measures 6 mm. The right kidney measures 9.9 x 5.3 x 5.5 cm. The left kidney measures 11.7 x 5.6 x 4.9 cm. Right renal cortical scarring is again noted. A left renal parapelvic cyst is again noted. There is normal corticomedullary differentiation, there is no hydronephrosis. The spleen appears normal and measures 10.0 cm in long axis. TRANSABDOMINAL PELVIC ULTRASOUND The urinary bladder appears normal. No mass is seen in the pelvis. No pelvic free fluid. The prostate gland is enlarged and measures 4.9 x 4.2 x 5.2 cm. IMPRESSION: 1. No acute abnormality. 2. Gallbladder sludge balls. 3. Right renal cortical scarring. 4. Left renal parapelvic cyst. 5. Prostatomegaly. SL: 01/09/2015 - - Read by: Wilmar Courtney MD Dictated Date/time: 04/28/15 11:07 Electronically Signed by: Wilmar Courtney MD 01/09/15 11:15 FINAL REPORT [facility] Chest 2 views DX Chest 2 views DX HISTORY: Abdominal pain. Two views chest. COMPARISON: 08/22/2014. Lungs are clear. Heart size normal. There is no pleural effusion or pneumothorax. IMPRESSION: No acute finding. SL:13 01/09/2015 - - Read by: Estuardo Avitia MD Dictated Date/time: 01/09/15 07:44 Electronically Signed by: Estuardo Avitia MD 01/09/15 07:45 FINAL REPORT [facility] 2 views Chest 2 views Examination: Chest x-ray, 2 views History: 189.0 renal cancer Comparison: 01/18/2014 Findings: The lungs are clear and without focal consolidation. The cardiomediastinal silhouette is within normal limits. No pleural effusion or pneumothorax is seen. The osseous structures are without focal abnormality. IMPRESSION: No acute cardiopulmonary disease. SL: 16 08/22/2014 - - Read by: Hernandez Mendez MD Dictated Date/time: 08/22/14 11:53 Electronically Signed by: Hernandez Mendez MD 08/22/14 11:53 FINAL REPORT [facility] Abdomen/Pelvis w/wo IV contrast CT Abdomen/Pelvis w/wo IV contrast CT CT ABDOMEN AND PELVIS WITH AND WITHOUT CONTRAST INDICATION: Renal cancer COMPARISON: CT abdomen/pelvis 04/26/2014 FINDINGS: URINARY TRACT: There has been interval resection of the previously seen mass at the inferior pole of the right kidney. No definite recurrent or residual tumor is identified. Additionally, the previously seen right renal cyst is no longer present. There are postoperative changes of the inferior right perirenal fat. The right renal vein and IVC are grossly patent. Peripelvic cysts of the left kidney are again noted. The left kidney is otherwise unremarkable. The ureters are unremarkable. There is no hydronephrosis. Although incompletely distended, the wall of the bladder appears diffusely thickened. The prostate is enlarged and heterogeneous. ABDOMEN: There is mild atelectasis or scarring of the right lung base. No consolidation or pulmonary nodules are identified. There is a stable subcentimeter hypodense focus of the left hepatic lobe, too small to characterize, a probable cyst. The liver, spleen, pancreas, gallbladder, and adrenal glands are normal in morphology. There is colonic diverticulosis. The stomach and bowel loops are otherwise grossly unremarkable. No free fluid or abnormal fluid collections are seen. No abdominal lymphadenopathy is identified. The abdominal aorta is grossly patent and normal in caliber. PELVIS: No pelvic lymphadenopathy is identified. BONES: No acute bony abnormalities or suspicious osseous lesions are seen. IMPRESSION: 1. Posttreatment changes of the right kidney. No definite residual or recurrent mass is identified. 2. Prostatic enlargement. Diffuse bladder wall thickening is presumably secondary to chronic bladder obstruction. 3. Diverticulosis. SL: 16 08/22/2014 - - Read by: Jay Jay Narvaez MD Dictated Date/time: 08/22/14 14:11 Electronically Signed by: Jay Jay Narvaez MD 08/22/14 14:22 FINAL REPORT [facility] URINE AND STOOL UA Urobilinogen <=1.0 mg/dL 0.1 - 1.0 07/02/2014 [facility] URINE AND STOOL UA Color Ltyellow 07/02/2014 [facility] URINE AND STOOL UA Sq Epi None Seen 07/02/2014 [facility] URINE AND STOOL UA Bacteria Occasional /HPF None Seen /HPF 07/02/2014 [facility] URINE AND STOOL UA RBC 1 /HPF 0 - 2 07/02/2014 [facility] URINE AND STOOL UA Blood Small *ABN* (07/02/14 11:40 AM) Negative 07/02/2014 [facility] URINE AND STOOL UA Protein Negative mg/dL Negative mg/dL 07/02/2014 [facility] URINE AND STOOL UA pH 5.0 5.0 - 8.0 07/02/2014 [facility] URINE AND STOOL UA Bili Negative *NA* (07/02/14 11:40 AM) Negative 07/02/2014 [facility] URINE AND STOOL UA Ketones Negative mg/dL Negative mg/dL 07/02/2014 [facility] URINE AND STOOL UA Glucose Negative mg/dL Negative mg/dL 07/02/2014 [facility] URINE AND STOOL UA Spec Grav 1.012 <=1.030 07/02/2014 [facility] URINE AND STOOL UA Turbidity Clear (07/02/14 11:40 AM) Clear 07/02/2014 [facility] URINE AND STOOL UA Nitrite Negative (07/02/14 11:40 AM) Negative 07/02/2014 [facility] URINE AND STOOL UA Leuk Est Negative (07/02/14 11:40 AM) Negative 07/02/2014 [facility] URINE AND STOOL UA WBC 2 /HPF 0 - 5 07/02/2014 [facility] CHEM PANEL eGFR 40 mL/min/1.73m2 06/04/2014 2Result Comment: The eGFR is calculated using the [...] from the National Kidney Disease Education Program (NKDEP) which additionally recommends that when the eGFR is used in patients with extremes of body mass index for purposes of drug dosing, the eGFR should be multiplied by the estimated BMI. [facility] CHEM PANEL Calcium Lvl 8.1 mg/dL 8.5 - 10.5 06/04/2014 [facility] CHEM PANEL Sodium Lvl 139 meq/L 135 - 145 06/04/2014 [facility] CHEM PANEL CO2 27 meq/L 24 - 32 06/04/2014 [facility] CHEM PANEL BUN 12 mg/dL 7 - 22 06/04/2014 [facility] CHEM PANEL Creatinine Lvl 1.6 mg/dL 0.5 - 1.4 06/04/2014 [facility] CHEM PANEL Potassium Lvl 3.6 meq/L 3.5 - 5.1 06/04/2014 [facility] CHEM PANEL Chloride Lvl 105 meq/L 95 - 109 06/04/2014 [facility] CHEM PANEL Glucose Lvl 119 mg/dL 70 - 99 06/04/2014 5Interpretive Data: Adult reference range values reflect the clinical guidelines of the [place] [employer]. [facility] CHEM PANEL AGAP 10.6 meq/L 10.0 - 20.0 06/04/2014 [facility] HEMATOLOGY WBC 7.0 K/CMM 3.7 - 10.4 06/04/2014 [facility] HEMATOLOGY Hgb 11.5 g/dL 14.0 - 18.0 06/04/2014 [facility] HEMATOLOGY RBC 3.49 M/CMM 4.70 - 6.10 06/04/2014 [facility] HEMATOLOGY Hct 33.0 % 42.0 - 54.0 06/04/[address] [facility] MCH 33.1 pg 27.0 - 31.0 06/04/2014 [facility] HEMATOLOGY MCV 94.6 fL 80.0 - 94.0 06/04/2014 [facility] HEMATOLOGY MCHC 35.0 g/dL 32.0 - 36.0 06/04/2014 [facility] HEMATOLOGY RDW 12.1 % 11.5 - 14.5 06/04/[address] [facility] MPV 8.1 fL 7.4 - 10.4 06/04/2014 [facility] HEMATOLOGY Platelet 200 K/CMM 133 - 450 06/04/2014 [facility] CHEM PANEL eGFR 37 mL/min/1.73m2 06/03/2014 3Result Comment: The eGFR is calculated using the [...] from the National Kidney Disease Education Program (NKDEP) which additionally recommends that when the eGFR is used in patients with extremes of body mass index for purposes of drug dosing, the eGFR should be multiplied by the estimated BMI. [facility] CHEM PANEL CO2 23 meq/L 24 - 32 06/03/2014 [facility] CHEM PANEL Calcium Lvl 7.7 mg/dL 8.5 - 10.5 06/03/2014 [facility] CHEM PANEL Potassium Lvl 3.3 meq/L 3.5 - 5.1 06/03/2014 [facility] CHEM PANEL Chloride Lvl 107 meq/L 95 - 109 06/03/2014 [facility] CHEM PANEL Glucose Lvl 120 mg/dL 70 - 99 06/03/2014 6Interpretive Data: Adult reference range values reflect the clinical guidelines of the [place] [employer]. [facility] CHEM PANEL BUN 14 mg/dL 7 - 22 06/03/2014 [facility] CHEM PANEL Creatinine Lvl 1.7 mg/dL 0.5 - 1.4 06/03/2014 [facility] CHEM PANEL Sodium Lvl 138 meq/L 135 - 145 06/03/2014 [facility] CHEM PANEL AGAP 11.3 meq/L 10.0 - 20.0 06/03/[address] [facility] MCH 33.1 pg 27.0 - 31.0 06/03/[address] [facility] MCHC 34.9 g/dL 32.0 - 36.0 06/03/[address] [facility] Hct 32.6 % 42.0 - 54.0 06/03/[address] [facility] MCV 94.9 fL 80.0 - 94.0 06/03/[address] [facility] Hgb 11.4 g/dL 14.0 - 18.0 06/03/[address] [facility] WBC 7.8 K/CMM 3.7 - 10.4 06/03/[address] [facility] RBC 3.43 M/CMM 4.70 - 6.10 06/03/[address] [facility] RDW 12.2 % 11.5 - 14.5 06/03/[address] [facility] MPV 8.1 fL 7.4 - 10.4 06/03/[address] [facility] Platelet 185 K/CMM 133 - 450 06/03/2014 [facility] BODY FLUIDS Creat BF Type LANIE Drain *NA* (06/02/14 2:16 PM) 06/02/2014 [facility] BODY FLUIDS Creatinine BF 1.7 mg/dL 06/02/2014 8Interpretive Data: No established reference ranges. [facility] Abdomen 2 views Abdomen 2 views PROCEDURE: Abdomen 2 views CLINICAL INFORMATION Abdominal fullness COMPARISON: CAT scan 04/26/2014. There is bibasilar atelectasis and pleural effusions. Air distended loops of small and large bowel are suspicious for ileus. Distal obstructing colonic process in the sigmoid colonic region is not excluded. Postoperative luanne are noted in the right lower lateral hemiabdomen. Lumbar spondylosis. No pathologic abdominal calcifications. These findings are communicated to the patient's nurse Hudson at 10:47 a.m. SL: 13 06/02/2014 - - Read by: Jay Hull MD Dictated Date/time: 06/02/14 10:33 Electronically Signed by: Jay Hull MD 06/02/14 10:45 FINAL REPORT [facility] CHEM PANEL eGFR 37 mL/min/1.73m2 06/02/2014 4Result Comment: The eGFR is calculated using the [...] from the National Kidney Disease Education Program (NKDEP) which additionally recommends that when the eGFR is used in patients with extremes of body mass index for purposes of drug dosing, the eGFR should be multiplied by the estimated BMI. [facility] CHEM PANEL Chloride Lvl 108 meq/L 95 - 109 06/02/2014 [facility] CHEM PANEL Potassium Lvl 3.7 meq/L 3.5 - 5.1 06/02/2014 [facility] CHEM PANEL Sodium Lvl 139 meq/L 135 - 145 06/02/2014 [facility] CHEM PANEL Creatinine Lvl 1.7 mg/dL 0.5 - 1.4 06/02/2014 [facility] CHEM PANEL Calcium Lvl 8.0 mg/dL 8.5 - 10.5 06/02/2014 [facility] CHEM PANEL CO2 24 meq/L 24 - 32 06/02/2014 [facility] CHEM PANEL BUN 15 mg/dL 7 - 22 06/02/2014 [facility] CHEM PANEL Glucose Lvl 132 mg/dL 70 - 99 06/02/2014 7Interpretive Data: Adult reference range values reflect the clinical guidelines of the [place] [employer]. [facility] CHEM PANEL AGAP 10.7 meq/L 10.0 - 20.0 06/02/2014 [facility] HEMATOLOGY Hct 35.1 % 42.0 - 54.0 06/02/2014 [facility] HEMATOLOGY Hgb 12.1 g/dL 14.0 - 18.0 06/02/[address] [facility] Platelet 186 K/CMM 133 - 450 06/02/[address] [facility] RDW 12.4 % 11.5 - 14.5 06/02/[address] [facility] MCH 32.8 pg 27.0 - 31.0 06/02/[address] [facility] MCV 95.2 fL 80.0 - 94.0 06/02/[address] [facility] RBC 3.69 M/CMM 4.70 - 6.10 06/02/[address] [facility] MCHC 34.4 g/dL 32.0 - 36.0 06/02/[address] [facility] MPV 8.1 fL 7.4 - 10.4 06/02/[address] [facility] WBC 9.9 K/CMM 3.7 - 10.4 06/02/[address] [facility] Segs-Bands # 7.3 K/CMM 1.5 - 8.1 06/01/[address] [facility] Monocytes 11.0 % 2.0 - 12.0 06/01/[address] [facility] Eosinophils 0.4 % 0.0 - 4.0 06/01/[address] [facility] Lymphocytes # 0.8 K/CMM 1.0 - 5.5 06/01/[address] [facility] Monocytes # 1.0 K/CMM 0.0 - 0.8 06/01/[address] [facility] Basophils 0.4 % 0.0 - 1.0 06/01/[address] [facility] Segs 79.5 % 45.0 - 75.0 06/01/[address] [facility] Lymphocytes 8.7 % 20.0 - 40.0 06/01/[address] [facility] PTT 29.3 s 22.9 - 35.8 05/31/2014 10Interpretive Data: Heparin Therapeutic Range: 57 - 92 Seconds [facility] BLOOD BANK RESULTS RBC product Product available 1 (05/24/14 11:25 AM) 05/24/2014 1Result Comment: 05/31/2014 06:15 [id number] preadmit pt/mdj [facility] BLOOD BANK RESULTS ABO/Rh O NEG 05/24/2014 [facility] BLOOD BANK RESULTS Antibody Scrn Negative (05/24/14 11:25 AM) 05/24/[address] [facility] PTT 30.3 s 22.9 - 35.8 05/24/2014 11Interpretive Data: Heparin Therapeutic Range: 57 - [address] [facility] INR 0.95 0.85 - 1.17 05/24/2014 9Interpretive Data: RECOMMENDED RANGES FOR PROTIME INR: 2.0-3.0 for most medical and surgical thromboembolic states. 2.5-3.5 for artificial heart valves and recurrent embolism. INR SHOULD BE USED ONLY FOR PATIENTS ON STABLE ANTICOAGULANT THERAPY. [facility] PT 12.7 s 12.0 - 14.7 05/24/[address] [facility] Basophils # 0.1 K/CMM 0.0 - 0.2 05/24/[address] [facility] Eosinophils # 0.2 K/CMM 0.0 - 0.5 05/24/2014 [facility] HEMATOLOGY Monocytes # 0.7 K/CMM 0.0 - 0.8 05/24/2014 [facility] HEMATOLOGY Lymphocytes # 0.9 K/CMM 1.0 - 5.5 05/24/2014 [facility] HEMATOLOGY Segs-Bands # 5.0 K/CMM 1.5 - 8.1 05/24/2014 [facility] HEMATOLOGY Eosinophils 3.5 % 0.0 - 4.0 05/24/2014 [facility] HEMATOLOGY Basophils 0.8 % 0.0 - 1.0 05/24/2014 [facility] HEMATOLOGY Monocytes 9.9 % 2.0 - 12.0 05/24/2014 [facility] HEMATOLOGY Lymphocytes 13.6 % 20.0 - 40.0 05/24/2014 [facility] HEMATOLOGY Segs 72.2 % 45.0 - 75.0 05/24/2014 [facility] URINE AND STOOL UA Urobilinogen <=1.0 mg/dL 0.1 - 1.0 05/24/2014 [facility] URINE AND STOOL UA Color Ltyellow 05/24/2014 [facility] URINE AND STOOL UA Sq Epi Occasional /LPF Few /LPF 05/24/2014 [facility] URINE AND STOOL UA WBC 1 /HPF 0 - 5 05/24/2014 [facility] URINE AND STOOL UA Bili Negative *NA* (05/24/14 11:25 AM) Negative 05/24/2014 [facility] URINE AND STOOL UA Nitrite Negative (05/24/14 11:25 AM) Negative 05/24/2014 [facility] URINE AND STOOL UA Blood Negative (05/24/14 11:25 AM) Negative 05/24/2014 [facility] URINE AND STOOL UA Leuk Est Negative (05/24/14 11:25 AM) Negative 05/24/2014 [facility] URINE AND STOOL UA Protein Negative mg/dL Negative mg/dL 05/24/2014 [facility] URINE AND STOOL UA Glucose 50 mg/dL Negative mg/dL 05/24/2014 [facility] URINE AND STOOL UA Ketones Negative mg/dL Negative mg/dL 05/24/2014 [facility] URINE AND STOOL UA Turbidity Clear (05/24/14 11:25 AM) Clear 05/24/2014 [facility] URINE AND STOOL UA RBC null 0 - 2 05/24/2014 [facility] URINE AND STOOL UA Spec Grav 1.014 <=1.030 05/24/2014 [facility] URINE AND STOOL UA pH 5.0 5.0 - 8.0 05/24/2014 [facility] Abdomen w/wo IV contrast CT Abdomen w/wo IV contrast CT CT abdomen without and with contrast: TECHNIQUE: Contiguous transaxial images of the abdomen were performed without and with IV contrast. Oral contrast was administered. COMPARISON: Renal ultrasound 03/23/2014 CT ABDOMEN: The precontrast images do not reveal any renal calculi. There is no hydronephrosis. Mild perinephric stranding. Nearly 4 cm low-density lobular mass is visualized arising from the lower pole of right kidney. This demonstrates heterogeneous enhancement on the postcontrast images. Few tiny peripheral calcifications are associated with this lesion. No regional or retroperitoneal lymphadenopathy is evident. Abdominal viscera: The postcontrast images reveal normal morphology and enhancement of the liver, spleen, pancreas, both adrenals and the gallbladder. GI Tract: There is no evidence for free fluid or free air in the abdomen. Vasculature: Mild aortoiliac atherosclerotic disease. Bone and Soft tissues: Mild lumbar spondylosis. IMPRESSION: Heterogeneously enhancing lobular mass, lower pole of right kidney is highly suspicious for renal adenocarcinoma. Urology consultation is recommended. Multiple small parapelvic cysts are visualized in the left kidney. Mild perinephric stranding is noted bilaterally suggestive of medical renal disease. NOTE: Findings telephoned to [place], nurse working with Dr. Kim on 04/26/2014, 1045 hours. SL:04/26/2014 - - Read by: Portillo Emmanuel MD Dictated Date/time: 04/26/14 10:37 Electronically Signed by: Portillo Emamnuel MD 04/26/14 10:56 FINAL REPORT [facility] Kidney pyelogram retrograde Kidney pyelogram retrograde Examination: Retrograde ureterogram History: small capacity bladder/fluoro time=24sec/Dose=24sec/Cysto Room Comparison: None. FINDINGS/IMPRESSION: Six intraoperative fluoroscopic views from a retrograde ureterogram were acquired. The left and right ureters were cannulated. Contrast opacifies the bilateral ureters and renal collecting systems. No definitive filling defects or strictures are noted in the ureters. Correlation with operative note is recommended. SL: 01/25/2014 - - Read by: Hernandez Mendez MD Dictated Date/time: 01/25/14 13:31 Electronically Signed by: Hernandez Mendez MD 01/25/14 13:35 FINAL REPORT [facility] ELECTROLYTES AGAP 13.4 meq/L 10.0 - 20.0 01/18/2014 [facility] ELECTROLYTES eGFR 52 mL/min/1.73m2 01/18/2014 1Result Comment: The eGFR is calculated using [...] from the National Kidney Disease Education Program (NKDEP) which additionally recommends that when the eGFR is used in patients with extremes of body mass index for purposes of drug dosing, the eGFR should be multiplied by the estimated BMI. [facility] ELECTROLYTES Calcium Lvl 8.7 mg/dL 8.5 - 10.5 01/18/2014 [facility] ELECTROLYTES CO2 25 meq/L 24 - 32 01/18/2014 [facility] ELECTROLYTES Chloride Lvl 106 meq/L 95 - 109 01/18/2014 [facility] ELECTROLYTES Potassium Lvl 4.4 meq/L 3.5 - 5.1 01/18/2014 [facility] ELECTROLYTES Creatinine Lvl 1.3 mg/dL 0.5 - 1.4 01/18/2014 [facility] ELECTROLYTES BUN 17 mg/dL 7 - 22 01/18/2014 [facility] ELECTROLYTES Glucose Lvl 109 mg/dL 70 - 99 01/18/2014 2Interpretive Data: Adult reference range values reflect the clinical guidelines of the [place] [employer]. [facility] ELECTROLYTES Sodium Lvl 140 meq/L 135 - 145 01/18/2014 [facility] HEMATOLOGY Basophils # 0.0 K/CMM 0.0 - 0.2 01/18/2014 [facility] HEMATOLOGY Monocytes 9.9 % 2.0 - 12.0 01/18/2014 [facility] HEMATOLOGY Eosinophils 3.4 % 0.0 - 4.0 01/18/2014 [facility] HEMATOLOGY Eosinophils # 0.2 K/CMM 0.0 - 0.5 01/18/2014 [facility] HEMATOLOGY Segs-Bands # 3.5 K/CMM 1.5 - 8.1 01/18/[address] [facility] Lymphocytes # 1.0 K/CMM 1.0 - 5.5 01/18/[address] [facility] Monocytes # 0.5 K/CMM 0.0 - 0.8 01/18/[address] [facility] Basophils 0.7 % 0.0 - 1.0 01/18/[address] [facility] Segs 66.3 % 45.0 - 75.0 01/18/[address] [facility] Lymphocytes 19.7 % 20.0 - 40.0 01/18/[address] [facility] MCHC 34.0 g/dL 32.0 - 36.0 01/18/[address] [facility] MCH 32.2 pg 27.0 - 31.0 01/18/[address] [facility] MCV 94.6 fL 80.0 - 94.0 01/18/[address] [facility] Hct 39.9 % 42.0 - 54.0 01/18/[address] [facility] RDW 12.6 % 11.5 - 14.5 01/18/[address] [facility] MPV 8.4 fL 7.4 - 10.4 01/18/[address] [facility] Platelet 196 K/CMM 133 - 450 01/18/[address] [facility] Hgb 13.6 g/dL 14.0 - 18.0 01/18/[address] [facility] WBC 5.2 K/CMM 3.7 - 10.4 01/18/[address] [facility] RBC 4.21 M/CMM 4.70 - 6.10 01/18/2014 [facility] SPECIAL CHEMISTRY PSA 1.48 ng/mL 0.00 - 4.00 01/18/2014 3Interpretive Data: 0-4 ng/ml is clinically accepted reference range from the [employer] in 1997 for Total PSA. A PSA value in the range of 0.1 to 0.6 ng/mL is indeterminate if being used as an indicator of recurrent or residual disease. [facility] URINE AND STOOL UA Bili Negative *NA* (01/18/14 10:15 AM) Negative 01/18/2014 [facility] URINE AND STOOL UA Ketones Negative mg/dL Negative mg/dL 01/18/2014 [facility] URINE AND STOOL UA Blood Negative (01/18/14 10:15 AM) Negative 01/18/2014 [facility] URINE AND STOOL UA Glucose Negative mg/dL Negative mg/dL 01/18/2014 [facility] URINE AND STOOL UA Spec Grav 1.015 <=1.030 01/18/2014 [facility] URINE AND STOOL UA pH 5.0 5.0 - 8.0 01/18/2014 [facility] URINE AND STOOL UA Protein Negative mg/dL Negative mg/dL 01/18/2014 [facility] URINE AND STOOL UA Leuk Est Negative (01/18/14 10:15 AM) Negative 01/18/2014 [facility] URINE AND STOOL UA Nitrite Negative (01/18/14 10:15 AM) Negative 01/18/2014 [facility] URINE AND STOOL UA Sq Epi None Seen 01/18/2014 [facility] URINE AND STOOL UA RBC 1 /HPF 0 - 2 01/18/2014 [facility] URINE AND STOOL UA WBC null 0 - 5 01/18/2014 [facility] URINE AND STOOL UA Color Ltyellow 01/18/2014 [facility] URINE AND STOOL UA Urobilinogen <=1.0 mg/dL 0.1 - 1.0 01/18/2014 [facility] URINE AND STOOL UA Turbidity Clear (01/18/14 10:15 AM) Clear 01/18/2014 [facility] Chest 2 views Chest 2 views HISTORY: Cough. Chest 2 views. Comparison 05/04/2013. Lungs are clear. Heart size normal. No evidence for CHF. No pleural effusion or pneumothorax. IMPRESSION: No significant finding. SL:13 01/18/2014 - - Read by: Estuardo Avitia MD Dictated Date/time: 01/18/14 12:06 Electronically Signed by: Estuardo Avitia 01/18/14 12:07 FINAL REPORT [facility] Vital Signs Vital Sign Value Date Comments Source Diastolic (mm Hg) 65 07/02/2014 [facility] Systolic (mm Hg) 141 07/02/2014 [facility] Respitory Rate 18 07/02/2014 [facility] Temperature Oral (F) 98.0 F 07/02/2014 [facility] Heart Rate 64 07/02/2014 [facility] Temperature Oral (F) 98.1 F 07/02/2014 [facility] Respitory Rate 18 07/02/2014 [facility] Systolic (mm Hg) 134 07/02/2014 [facility] Diastolic (mm Hg) 65 07/02/2014 [facility] Heart Rate 80 07/02/2014 [facility] Weight 84.091 07/02/2014 [facility] BMI Calculated 25.14 07/02/2014 [facility] Height 182.88 cm 07/02/2014 [facility] Heart Rate 77 06/05/2014 [facility] Systolic (mm Hg) 115 06/05/2014 [facility] Respitory Rate 18 06/05/2014 [facility] Temperature Oral (F) 97.9 F 06/05/2014 [facility] Diastolic (mm Hg) 65 06/05/2014 [facility] Respitory Rate 18 06/05/2014 [facility] Temperature Oral (F) 97.3 F 06/05/2014 [facility] Systolic (mm Hg) 178 06/05/2014 [facility] Heart Rate 73 06/05/2014 [facility] Diastolic (mm Hg) 69 06/05/2014 [facility] Heart Rate 69 06/05/2014 [facility] Diastolic (mm Hg) 70 06/05/2014 [facility] Respitory Rate 16 06/05/2014 [facility] Systolic (mm Hg) 156 06/05/2014 [facility] Temperature Oral (F) 98.2 F 06/05/2014 [facility] Height 182.88 cm 05/31/2014 [facility] BMI Calculated 26.23 05/31/2014 [facility] Weight 87.727 05/31/2014 [facility] Weight 87.727 05/24/2014 [facility] Height 182.88 cm 05/24/2014 [facility] BMI Calculated 26.23 05/24/2014 [facility] Diastolic (mm Hg) 86 01/25/2014 [facility] Systolic (mm Hg) 111 01/25/2014 [facility] Diastolic (mm Hg) 55 01/25/2014 [facility] Respitory Rate 11 01/25/2014 [facility] Systolic (mm Hg) 153 01/25/2014 [facility] Diastolic (mm Hg) 81 01/25/2014 [facility] Systolic (mm Hg) 179 01/25/2014 [facility] Respitory Rate 12 01/25/2014 [facility] Respitory Rate 13 01/25/2014 [facility] Heart Rate 77 01/25/2014 [facility] Temperature Oral (F) 97.0 F 01/18/2014 [facility] Heart Rate 69 01/18/2014 [facility] BMI Calculated 27.59 01/18/2014 [facility] Weight 92.273 01/18/2014 [facility] Height 182.88 cm 01/18/2014 [facility] Encounters Location Location Details Encounter Type Encounter Number Reason For Visit Attending Provider ADM Date DC Date Status Source [facility] Day Surgery [id number] Carl Alarcon 01/25/2014 01/25/2014 [facility] [id number] Timmy Seaman 03/23/2014 03/24/2014 [facility] [id number] Florentin Kim 04/26/2014 04/27/2014 [facility] [id number] Harpreet Vemana 05/31/2014 06/05/2014 [facility] [id number] Mat Altman 07/02/2014 07/02/2014 [facility] OP Therapy Patients [id number] Clari Thursday07/11/2014 08/10/2014 [facility] Outpatient [id number] Harpreet Vemana 08/22/2014 08/23/2014 [facility] Outpatient [id number] Ramon Anderson 01/09/2015 01/10/2015 [facility] Outpatient [id number] Harpreet Vemana 08/25/2015 08/26/2015 [facility] Out[facility] [id number] Harpreet Vemana 09/24/2016 09/25/2016 [facility]patient [id number] Buddy Anderson 04/20/2017 04/21/2017 [facility] Out[facility] [id number] Buddy Anderson 04/21/2018 04/22/2018 [facility] Procedures Procedure Code Date Perfomer Comments Source Appendectomy [id number] [facility] CEIOL - Cataract extraction and insertion of intraocular lens<sup>1</sup> [id number] right and left [facility] Cystectomy<sup>2</sup> 492991171 excision of pilondial cyst [facility] Dilation of bladder<sup>3</sup> 68529578 hydrodistention [facility] Foot repair [id number] [facility] Hernia repair<sup>4</sup> [id number] umbilical [facility] Vasectomy [id number] [facility] Dilation of bladder<sup>2</sup> [id number] 2hydrodistention [facility] Kidney operation<sup>5</sup> [id number] Partial right nephrectomy [facility]
--- OUTSIDE RECORDS SUMMARY | 2019-01-14 14:18 | XMS REPORT | Summary of Care ---
Author Author [facility] Organization [facility] Address Unknown Phone Unavailable Encounter HQ Chidi(FIN) [id number] Date(s): 04/21/18 - 04/21/18 [facility] [address] [place] [address]- Encounter Diagnosis Pain in left wrist (Final) - 04/27/18 Other specified soft tissue disorders (Final) - Other cyst of bone, other site (Final) - Discharge Disposition: Home or Self Care Attending Physician: Buddy Anderson MD Vital Signs No data available for this section Problem List Condition Effective Dates Status Health Status Informant Anxiety(Confirmed) Active Chest Resolved pain(Confirmed) Diabetes Active mellitus(Confirmed) GERD Active (gastroesophageal reflux disease)(Confirmed) HTN - Active Hypertension(Confirm ed) Hyperlipemia(Confirm Active ed) 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 1right Allergies, Adverse Reactions, Alerts Substance Reaction Severity Status codeine Active morphine Active propoxyphene Active Cipro Active Septra Active Demerol HCl Active Medications No data available for this section Results No data available for this section Immunizations Given and Recorded Vaccine Date Status Refusal Reason influenza virus vaccine, inactivated 06/05/14 Given tetanus-diphtheria toxoids 01/21/11 Given Procedures Procedure Date Related Diagnosis Body Site Status Appendectomy Completed CEIOL - Cataract extraction and insertion of Completed intraocular lens1 Cystectomy2 Completed Dilation of bladder3 Completed Foot repair Completed Hernia repair4 Completed Kidney operation5 Completed Vasectomy Completed 1right and left 2excision of pilondial cyst 3hydrodistention 4umbilical 5Partial right nephrectomy Social History Social History Type Response Substance Abuse Use: None. Alcohol Past Smoking Status Former smoker; Type: Cigarettes; Exposure to Tobacco Smoke None; Cigarette Smoking Last 365 Days No; Reg Smoking Cessation Counseling No; Started at age: 16.0; Stopped at age: 24; entered on: 07/12/18 Assessment and Plan No data available for this section
--- OUTSIDE RECORDS SUMMARY | 2019-01-14 14:19 | XMS REPORT | Summary of Care ---
Author Organization Unknown Address Unknown Phone Unavailable Encounter ANTHONY Murillo(AUGIE) [id number] Date(s): 07/02/14 - 07/02/14 [facility] [address] [place], [place] [address] - [facility] Discharge Diagnosis: Polyuria Discharge Disposition: Home Physician Attending: Mat Altman DO Reason for Visit BACK PAIN Vital Signs Most recent to 1 2 oldest [Reference Range]: Height 182.88 cm (07/02/14 9:38 AM) Temperature Oral 98.0 DegF 98.1 DegF [96.4-99.1 DegF] (07/02/14 1:50 PM) (07/02/14 9:38 AM) Systolic Blood 141 mmHg 134 mmHg Pressure [90-140 *HI* (07/02/14 9:38 AM) mmHg] (07/02/14 1:50 PM) Diastolic Blood 65 mmHg 65 mmHg Pressure [60-90 (07/02/14 1:50 PM) (07/02/14 9:38 AM) mmHg] Respiratory Rate 18 BRMIN 18 BRMIN [14-20 BRMIN] (07/02/14 1:50 PM) (07/02/14 9:38 AM) Peripheral Pulse 64 bpm 80 bpm Rate [60-100 bpm] (07/02/14 1:50 PM) (07/02/14 9:38 AM) Weight 84.091 kg (07/02/14 9:38 AM) Body Mass Index 25.14 m2 (07/02/14 9:38 AM) Problem List Condition Effective Dates Status Health [...] No data available for this section Results URINE AND STOOL Most recent to 1 oldest [Reference Range]: UA Turbidity [Clear] Clear (07/02/14 11:40 AM) UA Color Ltyellow *NA* (07/02/14 11:40 AM) UA pH [5.0-8.0] 5.0 (07/02/14 11:40 AM) UA Spec Grav 1.012 [<=1.030] (07/02/14 11:40 AM) UA Glucose [Negative Negative mg/dL mg/dL] *NA* (07/02/14 11:40 AM) UA Blood [Negative] Small *ABN* (07/02/14 11:40 AM) UA Ketones [Negative Negative mg/dL mg/dL] *NA* (07/02/14 11:40 AM) UA Protein [Negative Negative mg/dL mg/dL] (07/02/14 11:40 AM) UA Urobilinogen <=1.0 mg/dL [0.1-1.0 mg/dL] *NA* (07/02/14 11:40 AM) UA Bili [Negative] Negative *NA* (07/02/14 11:40 AM) UA Leuk Est Negative [Negative] (07/02/14 11:40 AM) UA Nitrite Negative [Negative] (07/02/14 11:40 AM) UA WBC [0-5 /HPF] 2 /HPF (07/02/14 11:40 AM) UA RBC [0-2 /HPF] 1 /HPF (07/02/14 11:40 AM) UA Bacteria [None Occasional /HPF Seen /HPF] *NA* (07/02/14 11:40 AM) UA Sq Epi None Seen *NA* (07/02/14 11:40 AM) Medications Administered During Your Visit No data available for this section Immunizations Vaccine Date Refusal Reason influenza virus vaccine, inactivated 06/05/14 tetanus-diphtheria toxoids 01/21/11 Social History Social History Type Response Alcohol Use: Past Smoking Status Former smoker, Type: Cigarettes, Exposure to Tobacco Smoke None, Cigarette Smoking Last 365 Days No, Reg Smoking Cessation Counseling No
--- OUTSIDE RECORDS SUMMARY | 2019-01-14 14:19 | XMS REPORT | Summary of Care ---
Author Author [facility] Organization [facility] Address Unknown Phone Unavailable Encounter HQ Chidi(AUGIE) [id number] Date(s): 08/25/15 - 08/25/15 [facility] [address] [place] [address]- Discharge Disposition: Home Attending Physician: Harpreet Pulliam MD Referring Physician: Harpreet Pulliam MD Vital Signs No data available for [...] virus vaccine, inactivated 06/05/14 tetanus-diphtheria toxoids 01/21/11 Procedures Procedure Date Related Diagnosis Body Site [...]
--- OUTSIDE RECORDS SUMMARY | 2019-01-14 14:19 | XMS REPORT | Summary of Care ---
Author Author [facility] Organization [facility] Address Unknown Phone Unavailable Encounter HQ Chidi(FIN) [id number] Date(s): 09/24/16 - 09/24/16 [facility] [address] [place] [address]- Discharge Disposition: Home or Self Care Attending Physician: Harpreet Pulliam MD Referring Physician: [...]
--- OUTSIDE RECORDS SUMMARY | 2019-01-14 14:19 | XMS REPORT | Summary of Care ---
Author Organization Unknown Address Unknown Phone Unavailable Encounter HQ Kristan_quintin(AUGIE) [id number] Date(s): 08/22/14 - 08/22/14 [facility] [address] [place], [place] [address] [facility] Discharge Disposition: Home Physician Attending: Harpreet Pulliam MD Physician_Referring: Harpreet Pulliam MD Reason for Visit 189.0 RENAL CA Problem List Condition Effective Dates Status Health [...]
--- OUTSIDE RECORDS SUMMARY | 2019-01-14 14:19 | XMS REPORT | Summary of Care ---
Author Organization Unknown Address Unknown Phone Unavailable Encounter [facility] Chidi(AUGIE) [id number] Date(s): 05/31/14 - 06/05/14 [facility] [address] [place] [id number] - [facility] Discharge Disposition: Home Physician Attending: Harpreet Pulliam MD Physician Admitting: Harpreet Pulliam MD Physician_Referring: Harpreet Pulliam MD Reason for Visit POST-OP RIGHT ROBOTIC PARTIAL NEPHRECTOMY Vital Signs 1 2 3 Most recent to oldest [Reference Range]: 182.88 cm (05/31/14 5:10 PM) 182.88 cm (05/24/14 10:26 AM) Height 97.9 DegF (06/05/14 12:00 PM) 97.3 DegF (06/05/14 8:00 AM) 98.2 DegF (06/05/14 4:00 AM) Temperature Oral [96.4-99.1 DegF] 115 mmHg (06/05/14 12:00 PM) 178 mmHg *HI* (06/05/14 8:00 AM) 156 mmHg *HI* (06/05/14 4:00 AM) Systolic Blood Pressure [90-140 mmHg] 65 mmHg (06/05/14 12:00 PM) 69 mmHg (06/05/14 8:00 AM) 70 mmHg (06/05/14 4:00 AM) Diastolic Blood Pressure [60-90 mmHg] 18 BRMIN (06/05/14 12:00 PM) 18 BRMIN (06/05/14 8:00 AM) 16 BRMIN (06/05/14 4:00 AM) Respiratory Rate [14-20 BRMIN] 77 bpm (06/05/14 12:00 PM) 73 bpm (06/05/14 8:00 AM) 69 bpm (06/05/14 4:00 AM) Peripheral Pulse Rate [60-100 bpm] 87.727 kg (05/31/14 5:10 PM) 87.727 kg (05/24/14 10:26 AM) Weight 26.23 m2 (05/31/14 5:10 PM) 26.23 m2 (05/24/14 10:26 AM) Body Mass Index Problem List Condition [...] Active propoxyphene Active Septra Active Medications acetaminophen 1,000 mg, 100 mL, Route: IVPB, Drug form: INJ, ONCE, Dosing Weight 87.727, kg, P RN Pain Score 1-3, Start date: 05/31/14 13:14:00, Duration: 1 doses or times, St op date: Limited # of times Notes: Infuse over 15 minutes Do not exceed 4gm/day of acetaminophen Start Date: 05/31/14 Stop Date: 06/05/14 Status: Discontinued acetaminophen-hydrocodone 325 mg-5 mg oral tablet 1 tab, Route: PO, Drug Form: TAB, Dosing Weight 87.727, kg, Q4H, PRN Pain Score 4-6, Start date: 05/31/14 12:34:00, Duration: 30 day, Stop date: 06/30/14 12:33: 00 Notes: (Same as: Wilcox 325/5) Do not exceed 4gm/day of acetaminophen. Start Date: 05/31/14 Stop Date: 06/05/14 Status: Discontinued Al hydroxide/Mg hydroxide/simethicone 200 mg-200 mg-20 mg/5 mL oral suspension 30 mL, Route: PO, Drug Form: SUSP, Dosing Weight 87.727, kg, Q4H, PRN Indigestio n, Start date: 05/31/14 12:34:00, Duration: 30 day, Stop date: 06/30/14 12:33:00 Notes: (aluminum hydroxide-magnesium hyd-simethicone 524-918-62dg/5ml 30 ml ud S US) Start Date: 05/31/14 Stop Date: 06/05/14 Status: Discontinued Ancef 2 gm, Route: IVPB, ONCE, Dosing Weight 87.727, kg, Start date: 05/31/14 13:44:00 , Duration: 1 doses or times, Stop date: 05/31/14 13:44:00 Start Date: 05/31/14 Stop Date: 05/31/14 Status: Completed Ancef 2 gm, Route: IVPB, ONCE, Dosing Weight 87.727, kg, Start date: 05/31/14 7:56:00, Stop date: 05/31/14 7:56:00 Start Date: 05/31/14 Stop Date: 05/31/14 Status: Completed buPROPion 150 mg, 1 tab, Route: PO, Drug form: ERTAB, Q24H, Dosing Weight 87.727, kg, Star t date: 05/31/14 13:00:00, Duration: 30 day, Stop date: 06/29/14 13:00:00 Notes: (Do not crush) (Same As: Wellbutrin SR) Start Date: 05/31/14 Stop Date: 06/05/14 Status: Discontinued buPROPion 150 mg/24 hours oral extended release tablet 150 mg=1 tab, PO, Q24H, # 30 tab, 0 Refill(s) Start Date: 05/24/14 Status: Ordered ceFAZolin (SCIP) 1 gm, 100 mL, Route: IVPB, Drug form: INJ, Q8H, Dosing Weight 87.727, kg, Start date: 05/31/14 16:00:00, Duration: 1 doses or times, Stop date: 05/31/14 16:00:0 0 Start Date: 05/31/14 Stop Date: 05/31/14 Status: Completed Dilaudid 0.5 mg, 0.5 mL, Route: IV, Drug form: INJ, Q3H, Dosing Weight 87.727, kg, PRN Pa in Score 7-10, Start date: 05/31/14 12:48:00, Duration: 30 day, Stop date: 06/30 12:47:00 Start Date: 05/31/14 Stop Date: 06/05/14 Status: Discontinued diphenhydrAMINE 12.5 mg, 0.25 mL, Route: IVP, Drug form: INJ, Q6H, Dosing Weight 87.727, kg, PRN Itching, Start date: 05/31/14 13:14:00, Duration: 30 day, Stop date: 06/30/14 1 3:13:00 Notes: (Same as: Benadryl) Start Date: 05/31/14 Stop Date: 06/05/14 Status: Discontinued diphenhydrAMINE 25 mg, 1 tab, Route: PO, Drug form: TAB, Bedtime, Dosing Weight 87.727, kg, PRN Insomnia, Start date: 05/31/14 12:34:00, Duration: 30 day, Stop date: 06/30/14 1 2:33:00 Start Date: 05/31/14 Stop Date: 06/05/14 Status: Discontinued docusate sodium 100 mg oral capsule 100 mg, 1 cap, Route: PO, Drug form: CAP, BID, Dosing Weight 87.727, kg, Start d ate: 05/31/14 17:00:00, Duration: 30 day, Stop date: 06/30/14 9:00:00 Notes: (Same as: Colace) (Do Not Crush) Start Date: 05/31/14 Stop Date: 06/05/14 Status: Discontinued doxazosin 4 mg, 1 tab, Route: PO, Drug form: TAB, Daily, Dosing Weight 87.727, kg, Start d ate: 06/01/14 9:00:00, Duration: 30 day, Stop date: 06/30/14 9:00:00 Notes: (Same as: Cardameena) Start Date: 06/01/14 Stop Date: 06/05/14 Status: Discontinued Dulcolax Laxative 5 mg, 1 tab, Route: PO, Drug form: ECTAB, Q24H, Dosing Weight 87.727, kg, PRN Co nstipation, Start date: 05/31/14 12:34:00, Duration: 30 day, Stop date: 06/30/14 12:33:00 Notes: (Same As: Dulcolax, Correctol) (Do Not Crush) "Do Not Crush" Start Date: 05/31/14 Stop Date: 06/05/14 Status: Discontinued enoxaparin 40 mg, 0.4 mL, Route: SUB-Q, Drug form: INJ, Daily, Dosing Weight 87.727, kg, St art date: 06/01/14 6:00:00, Duration: 30 day, Stop date: 06/30/14 6:00:00 Notes: (Same as: Lovenox) Start Date: 06/01/14 Stop Date: 06/05/14 Status: Discontinued fentaNYL 25 microgram, 0.5 mL, Route: IVP, Drug form: INJ, Q5Min, Dosing Weight 87.727, k g, PRN Pain Score 4-6, Start date: 05/31/14 13:14:00, Duration: 4 doses or times , Stop date: Limited # of times Notes: (Same as: Sublimaze) Preservative free. Start Date: 05/31/14 Stop Date: 06/05/14 Status: Discontinued fentaNYL 50 microgram, 1 mL, Route: IVP, Drug form: INJ, Q5Min, Dosing Weight 87.727, kg, PRN Pain Score 7-10, Start date: 05/31/14 13:14:00, Duration: 2 doses or times, Stop date: Limited # of times Notes: (Same as: Sublimaze) Preservative free. Start Date: 05/31/14 Stop Date: 06/05/14 Status: Discontinued flumazenil 0.2 mg, 2 mL, Route: IVP, Drug form: INJ, PRN, Dosing Weight 87.727, kg, PRN Troy zodiazepine Reversal, Initial dose, Start date: 05/31/14 13:14:00, Duration: 30 day, Stop date: 06/30/14 13:13:00 Notes: (Same as: Romazicon) Start Date: 05/31/14 Stop Date: 06/05/14 Status: Discontinued hydromorphone 0.5 mg, 0.5 mL, Route: IVP, Drug form: INJ, Q5Min, Dosing Weight 87.727, kg, PRN Pain Score 7-10, Start date: 05/31/14 13:14:00, Duration: 4 doses or times, Stop date: Limited # of times Start Date: 05/31/14 Stop Date: 06/05/14 Status: Discontinued insulin aspart 2 unit, 0.02 mL, Route: SUB-Q, Drug form: SOLN, TID-Before Meals, Dosing Weight 87.727, kg, PRN Blood Glucose Results, Start date: 05/31/14 12:34:00, Duration: 30 day, Stop date: 06/30/14 12:33:00 Notes: Roll in palms of hands gently; Do not shake vigorously. (Same as: NovoLO G)"single patient use only" Stable for 28 days at room temperature.Expires in _ ____ days from Date Start Date: 05/31/14 Stop Date: 06/05/14 Status: Discontinued insulin aspart 3 unit, 0.03 mL, Route: SUB-Q, Drug form: SOLN, TID-Before Meals, Dosing Weight 87.727, kg, PRN Blood Glucose Results, Start date: 05/31/14 12:34:00, Duration: 30 day, Stop date: 06/30/14 12:33:00 Notes: Roll in palms of hands gently; Do not shake vigorously. (Same as: NovoLO G)"single patient use only" Stable for 28 days at room temperature.Expires in _ ____ days from Date Start Date: 05/31/14 Stop Date: 06/05/14 Status: Discontinued insulin aspart 4 unit, 0.04 mL, Route: SUB-Q, Drug form: SOLN, TID-Before Meals, Dosing Weight 87.727, kg, PRN Blood Glucose Results, Start date: 05/31/14 12:34:00, Duration: 30 day, Stop date: 06/30/14 12:33:00 Notes: Roll in palms of hands gently; Do not shake vigorously. (Same as: NovoLO G)"single patient use only" Stable for 28 days at room temperature.Expires in _ ____ days from Date Start Date: 05/31/14 Stop Date: 06/05/14 Status: Discontinued insulin aspart 5 unit, 0.05 mL, Route: SUB-Q, Drug form: SOLN, TID-Before Meals, Dosing Weight 87.727, kg, PRN Blood Glucose Results, Start date: 05/31/14 12:34:00, Duration: 30 day, Stop date: 06/30/14 12:33:00 Notes: Roll in palms of hands gently; Do not shake vigorously. (Same as: NovoLO G)"single patient use only" Stable for 28 days at room temperature.Expires in _ ____ days from Date Start Date: 05/31/14 Stop Date: 06/05/14 Status: Discontinued insulin aspart 1 unit, 0.01 mL, Route: SUB-Q, Drug form: SOLN, TID-Before Meals, Dosing Weight 87.727, kg, PRN Blood Glucose Results, Start date: 05/31/14 12:34:00, Duration: 30 day, Stop date: 06/30/14 12:33:00 Notes: Roll in palms of hands gently; Do not shake vigorously. (Same as: NovoLO G)"single patient use only" Stable for 28 days at room temperature.Expires in _ ____ days from Date Start Date: 05/31/14 Stop Date: 06/05/14 Status: Discontinued Insulin regular 5 unit, Route: IV, ONCE, Dosing Weight 87.727, kg, Start date: 05/31/14 13:54:00 , Stop date: 05/31/14 13:54:00 Start Date: 05/31/14 Stop Date: 05/31/14 Status: Completed ketorolac 30 mg, 1 mL, Route: IVP, Drug form: INJ, ONCE, Dosing Weight 87.727, kg, Start d ate: 05/31/14 13:14:00, Duration: 1 doses or times, Stop date: 05/31/14 13:14:00 Notes: (Same as:Toradol) IV bolus must be given >15 seconds. Give IM administration slowly and deeply into the muscle. Not for use > 4 days Start Date: 05/31/14 Stop Date: 05/31/14 Status: Completed Lactated Ringers Injection IV 1,000 mL 1,000 mL, Rate: 125 ml/hr, Infuse over: 8 hr, Route: IV, Dosing Weight 87.727 kg , Total Volume: 1,000, Start date: 06/04/14 11:13:00, Duration: 30 day, Stop vivienne e: 07/04/14 11:12:00 Start Date: 06/04/14 Stop Date: 06/04/14 Status: Discontinued Lactated Ringers Injection IV 1,000 mL 1,000 mL, Rate: 125 ml/hr, Infuse over: 8 hr, Route: IV, Dosing Weight 87.727 kg , Total Volume: 1,000, Start date: 05/31/14 13:14:00, Duration: 30 day, Stop vivienne e: 06/30/14 13:13:00 Start Date: 05/31/14 Stop Date: 06/04/14 Status: Discontinued Lactated Ringers Injection IV 1000 mL 1,000 mL, Rate: 25 ml/hr, Infuse over: 40 hr, Route: IV, Dosing Weight 87.727 kg , Total Volume: 1,000, Start date: 05/31/14 7:13:00, Duration: 30 day, Stop date : 06/30/14 7:12:00 Start Date: 05/31/14 Stop Date: 05/31/14 Status: Discontinued LORazepam 1 mg, 1 tab, Route: PO, Drug form: TAB, TID, Dosing Weight 87.727, kg, PRN Anxie ty, Start date: 05/31/14 12:43:00, Duration: 30 day, Stop date: 06/30/14 12:42:0 0 Notes: (Same as: Ativan) Start Date: 05/31/14 Stop Date: 06/05/14 Status: Discontinued mannitol 12.5 gm, 50 mL, Route: IVPB, Drug form: INJ, ONCE, Dosing Weight 87.727, kg, Sta rt date: 05/31/14 6:03:00, Stop date: 05/31/14 6:03:00 Notes: (Same as: Osmitrol) Infuse through 5 micron or smaller filter Start Date: 05/31/14 Stop Date: 05/31/14 Status: Completed metFORMIN PO, Daily, 0 Refill(s) Start Date: 05/24/14 Stop Date: 06/05/14 Status: Discontinued naloxone 0.04 mg, 0.1 mL, Route: IVP, Drug form: INJ, Q2MIN, Dosing Weight 87.727, kg, AR N Narcotic Reversal, Start date: 05/31/14 13:14:00, Duration: 8 doses or times, Stop date: Limited # of times Notes: Same as Narcan Start Date: 05/31/14 Stop Date: 06/05/14 Status: Discontinued Wilcox 5/325 oral tablet 1 tab, PO, Q4-6H, as needed for pain, # 30 tab, 0 Refill(s) Start Date: 06/05/14 Status: Ordered normal saline 0.9% IV 1,000 mL 1,000 mL, Rate: 125 ml/hr, Infuse over: 8 hr, Route: IV, Dosing Weight 87.727 kg , Total Volume: 1,000, Start date: 05/31/14 12:46:00, Duration: 30 day, Stop vivienne e: 06/30/14 12:45:00 Start Date: 05/31/14 Stop Date: 06/04/14 Status: Discontinued ondansetron 4 mg, Route: IVP, ONCE, Dosing Weight 87.727, kg, PRN Nausea & Vomiting, Start date: 05/31/14 13:14:00 Start Date: 05/31/14 Stop Date: 05/31/14 Status: Completed ondansetron 4 mg, 2 mL, Route: IVP, Drug form: INJ, Q6H, Dosing Weight 87.727, kg, PRN Nause a & Vomiting, Start date: 05/31/14 12:34:00, Duration: 30 day, Stop date: 06/30/14 12:33:00 Notes: (Same as: Zofran) Start Date: 05/31/14 Stop Date: 06/05/14 Status: Discontinued pantoprazole 40 mg, 1 tab, Route: PO, Drug form: ECTAB, Before Dinner, Dosing Weight 87.727, kg, Start date: 05/31/14 16:30:00, Duration: 30 day, Stop date: 06/29/14 16:30:0 0 Notes: Tablet should not be chewed or crushed.(Same as: Protonix) Start Date: 05/31/14 Stop Date: 06/05/14 Status: Discontinued promethazine + Sodium Chloride 0.9% IV 50 mL 6.25 mg, 0.25 mL, Route: IVPB, Drug form: INJ, ONCE, Dosing Weight 87.727, kg, P RN Nausea & Vomiting, Start date: 05/31/14 13:14:00 Notes: Do not give IV push. (Same as: Phenergan) Start Date: 05/31/14 Stop Date: 06/05/14 Status: Discontinued promethazine + Sodium Chloride 0.9% IV 50 mL 12.5 mg, 0.5 mL, Route: IVPB, Q4H, Dosing Weight 87.727, kg, PRN Nausea & Vomiting, Start date: 05/31/14 12:34:00, Duration: 30 day, Stop date: 06/30/14 12:33:00 Notes: Do not give IV push. (Same as: Phenergan) Start Date: 05/31/14 Stop Date: 06/05/14 Status: Discontinued Restoril 7.5 mg, 1 cap, Route: PO, Drug form: CAP, Bedtime, PRN Insomnia, Start date: 16:17:00, Duration: 30 day, Stop date: 06/30/14 16:16:00 Notes: (Same As: Restoril) Start Date: 05/31/14 Stop Date: 06/05/14 Status: Discontinued Saline Flush 0.9% 10 ml, Route: IVP, Drug Form: INJ, Dosing Weight 87.727, kg, PRN, PRN Line Flush , Start date: 05/31/14 12:34:00, Duration: 30 day, Stop date: 06/30/14 12:33:00 Notes: (Same as: BD Posiflush) Start Date: 05/31/14 Stop Date: 06/05/14 Status: Discontinued senna 8.6 mg oral tablet 17.2 mg, 2 tab, Route: PO, Drug Form: TAB, Dosing Weight 87.727, kg, BID, Start date: 06/01/14 9:00:00, Duration: 30 day, Stop date: 06/30/14 17:00:00 Notes: (Same as: Senokot) Start Date: 06/01/14 Stop Date: 06/05/14 Status: Discontinued Senna S oral tablet 2 tab, PO, Bedtime, # 90 tab, 0 Refill(s) Start Date: 06/05/14 Status: Ordered simvastatin 20 mg, 1 tab, Route: PO, Drug form: TAB, Bedtime, Dosing Weight 87.727, kg, Star t date: 05/31/14 21:00:00, Duration: 30 day, Stop date: 06/29/14 21:00:00 Notes: (Same as: Zocor) Start Date: 05/31/14 Stop Date: 06/05/14 Status: Discontinued Vitamin D3 5000 intl units oral capsule 5,000 IntlUnit=1 cap, PO, Daily, 0 Refill(s) Start Date: 05/24/14 Status: Ordered zolpidem 5 mg, Route: PO, Drug form: TAB, Bedtime, Dosing Weight 87.727, kg, PRN Insomnia , Start date: 05/31/14 12:34:00, Duration: 30 day, Stop date: 06/30/14 12:33:00 Start Date: 05/31/14 Stop Date: 05/31/14 Status: Deleted Results BLOOD BANK RESULTS 1 2 3 Most recent to oldest [Reference Range]: O NEG *Unknown* (05/24/14 11:25 AM) ABO/Rh Negative (05/24/14 11:25 AM) Antibody Scrn Product available 1 (05/24/14 11:25 AM) RBC product 1Result Comment: 05/31/2014 06:15 [id number] preadmit pt/mdj ELECTROLYTES 1 2 3 Most recent to oldest [Reference Range]: 139 mEq/L (06/04/14 4:02 AM) 138 mEq/L (06/03/14 6:09 AM) 139 mEq/L (06/02/14 3:45 AM) Sodium Lvl [135-145 mEq/L] 3.6 mEq/L (06/04/14 4:02 AM) 3.3 mEq/L *LOW* (06/03/14 6:09 AM) 3.7 mEq/L (06/02/14 3:45 AM) Potassium Lvl [3.5-5.1 mEq/L] 105 mEq/L (06/04/14 4:02 AM) 107 mEq/L (06/03/14 6:09 AM) 108 mEq/L (06/02/14 3:45 AM) Chloride Lvl [95-109 mEq/L] 27 mEq/L (06/04/14 4:02 AM) 23 mEq/L *LOW* (06/03/14 6:09 AM) 24 mEq/L (06/02/14 3:45 AM) CO2 [24-32 mEq/L] 10.6 mEq/L (06/04/14 4:02 AM) 11.3 mEq/L (06/03/14 6:09 AM) 10.7 mEq/L (06/02/14 3:45 AM) AGAP [10.0-20.0 mEq/L] CHEM PANEL 1 2 3 Most recent to oldest [Reference Range]: 1.6 mg/dL *HI* (06/04/14 4:02 AM) 1.7 mg/dL *HI* (06/03/14 6:09 AM) 1.7 mg/dL *HI* (06/02/14 3:45 AM) Creatinine Lvl [0.5-1.4 mg/dL] 40 mL/min/1.73m2 2 *NA* (06/04/14 4:02 AM) 37 mL/min/1.73m2 3 *NA* (06/03/14 6:09 AM) 37 mL/min/1.73m2 4 *NA* (06/02/14 3:45 AM) eGFR 12 mg/dL (06/04/14 4:02 AM) 14 mg/dL (06/03/14 6:09 AM) 15 mg/dL (06/02/14 3:45 AM) BUN [7-22 mg/dL] 119 mg/dL 5 *HI* (06/04/14 4:02 AM) 120 mg/dL 6 *HI* (06/03/14 6:09 AM) 132 mg/dL 7 *HI* (06/02/14 3:45 AM) Glucose Lvl [70-99 mg/dL] 8.1 mg/dL *LOW* (06/04/14 4:02 AM) 7.7 mg/dL *LOW* (06/03/14 6:09 AM) 8.0 mg/dL *LOW* (06/02/14 3:45 AM) Calcium Lvl [8.5-10.5 mg/dL] 2Result Comment: The eGFR is calculated using [...] be mul tiplied by the estimated BMI. 3Result Comment: The eGFR is calculated using [...] be mul tiplied by the estimated BMI. 4Result Comment: The eGFR is calculated using [...] be mul tiplied by the estimated BMI. 5Interpretive Data: Adult reference range values reflect the clinical guidelines of the [employer]. 6Interpretive Data: Adult reference range values reflect the clinical guidelines of the [place] [employer]. 7Interpretive Data: Adult reference range values reflect the clinical guidelines of the [employer]. URINE AND STOOL 1 2 3 Most recent to oldest [Reference Range]: Clear (05/24/14 11:25 AM) UA Turbidity [Clear] Ltyellow *NA* (05/24/14:25 AM) UA Color 5.0 (05/24/14:25 AM) UA pH [5.0-8.0] 1.014 (05/24/14:25 AM) UA Spec Grav [<=1.030] 50 mg/dL *ABN* (05/24/14:25 AM) UA Glucose [Negative mg/dL] Negative (05/24/14:25 AM) UA Blood [Negative] Negative mg/dL *NA* (05/24/14:25 AM) UA Ketones [Negative mg/dL] Negative mg/dL (05/24/14:25 AM) UA Protein [Negative mg/dL] <=1.0 mg/dL *NA* (05/24/14:25 AM) UA Urobilinogen [0.1-1.0 mg/dL] Negative *NA* (05/24/14:25 AM) UA Bili [Negative] Negative (05/24/14:25 AM) UA Leuk Est [Negative] Negative (05/24/14 11:25 AM) UA Nitrite [Negative] 1 /HPF (05/24/14:25 AM) UA WBC [0-5 /HPF] <1 /HPF (05/24/14 11:25 AM) UA RBC [0-2 /HPF] Occasional /LPF *NA* (05/24/14 11:25 AM) UA Sq Epi [Few /LPF] BODY FLUIDS 1 2 3 Most recent to oldest [Reference Range]: 1.7 mg/dL 8 *NA* (06/02/14 2:16 PM) Creatinine BF LANIE Drain *NA* (06/02/14 2:16 PM) Creat BF Type 8Interpretive Data: No established reference ranges. HEMATOLOGY 1 2 3 Most recent to oldest [Reference Range]: 7.0 K/CMM (06/04/14 4:02 AM) 7.8 K/CMM (06/03/14 6:09 AM) 9.9 K/CMM (06/02/14 3:45 AM) WBC [3.7-10.4 K/CMM] 3.49 M/CMM *LOW* (06/04/14 4:02 AM) 3.43 M/CMM *LOW* (06/03/14 6:09 AM) 3.69 M/CMM *LOW* (06/02/14 3:45 AM) RBC [4.70-6.10 M/CMM] 11.5 g/dL *LOW* (06/04/14 4:02 AM) 11.4 g/dL *LOW* (06/03/14 6:09 AM) 12.1 g/dL *LOW* (06/02/14 3:45 AM) Hgb [14.0-18.0 g/dL] 33.0 % *LOW* (06/04/14 4:02 AM) 32.6 % *LOW* (06/03/14 6:09 AM) 35.1 % *LOW* (06/02/14 3:45 AM) Hct [42.0-54.0 %] 94.6 fL *HI* (06/04/14 4:02 AM) 94.9 fL *HI* (06/03/14 6:09 AM) 95.2 fL *HI* (06/02/14 3:45 AM) MCV [80.0-94.0 fL] 33.1 pg *HI* (06/04/14 4:02 AM) 33.1 pg *HI* (06/03/14 6:09 AM) 32.8 pg *HI* (06/02/14 3:45 AM) MCH [27.0-31.0 pg] 35.0 g/dL (06/04/14 4:02 AM) 34.9 g/dL (06/03/14 6:09 AM) 34.4 g/dL (06/02/14 3:45 AM) MCHC [32.0-36.0 g/dL] 12.1 % (06/04/14 4:02 AM) 12.2 % (06/03/14 6:09 AM) 12.4 % (06/02/14 3:45 AM) RDW [11.5-14.5 %] 200 K/CMM (06/04/14 4:02 AM) 185 K/CMM (06/03/14 6:09 AM) 186 K/CMM (06/02/14 3:45 AM) Platelet [133-450 K/CMM] 8.1 fL (06/04/14 4:02 AM) 8.1 fL (06/03/14 6:09 AM) 8.1 fL (06/02/14 3:45 AM) MPV [7.4-10.4 fL] 79.5 % *HI* (06/01/14 3:50 AM) 72.2 % (05/24/14 11:25 AM) Segs [45.0-75.0 %] 8.7 % *LOW* (06/01/14 3:50 AM) 13.6 % *LOW* (05/24/14 11:25 AM) Lymphocytes [20.0-40.0 %] 11.0 % (06/01/14 3:50 AM) 9.9 % (05/24/14 11:25 AM) Monocytes [2.0-12.0 %] 0.4 % (06/01/14 3:50 AM) 3.5 % (05/24/14 11:25 AM) Eosinophils [0.0-4.0 %] 0.4 % (06/01/14 3:50 AM) 0.8 % (05/24/14 11:25 AM) Basophils [0.0-1.0 %] 7.3 K/CMM (06/01/14 3:50 AM) 5.0 K/CMM (05/24/14 11:25 AM) Segs-Bands # [1.5-8.1 K/CMM] 0.8 K/CMM *LOW* (06/01/14 3:50 AM) 0.9 K/CMM *LOW* (05/24/14 11:25 AM) Lymphocytes # [1.0-5.5 K/CMM] 1.0 K/CMM *HI* (06/01/14 3:50 AM) 0.7 K/CMM (05/24/14 11:25 AM) Monocytes # [0.0-0.8 K/CMM] 0.2 K/CMM (05/24/14 11:25 AM) Eosinophils # [0.0-0.5 K/CMM] 0.1 K/CMM (05/24/14 11:25 AM) Basophils # [0.0-0.2 K/CMM] 12.7 seconds (05/24/14 11:25 AM) PT [12.0-14.7 seconds] 0.95 9 (05/24/14 11:25 AM) INR [0.85-1.17] 29.3 seconds 10 (05/31/14 1:50 PM) 30.3 seconds 11 (05/24/14 11:25 AM) PTT [22.9-35.8 seconds] 9Interpretive Data: RECOMMENDED RANGES FOR PROTIME INR: 2.0-3.0 for most medical and surgical thromboembolic states. 2.5-3.5 for artificial heart valves and recurrent embolism. INR SHOULD BE USED ONLY FOR PATIENTS ON STABLE ANTICOAGULANT THERAPY. 10Interpretive Data: Heparin Therapeutic Range: 57 - 92 Seconds 11Interpretive Data: Heparin Therapeutic Range: 57 - 92 Seconds Medications Administered During Your Visit No data available for this section Immunizations Vaccine Date Refusal Reason influenza virus vaccine, inactivated 06/05/14 tetanus-diphtheria toxoids 01/21/11 Procedures Procedure Type Body Site Date of Procedure Related Diagnosis CEIOL - Cataract extraction and insertion of intraocular lens1 Dilation of bladder2 Vasectomy 1right and left 2hydrodistention Social History Social History Type Response Alcohol Use: Past Smoking Status Former smoker, Type: Cigarettes, Exposure to Tobacco Smoke None, Cigarette Smoking Last 365 Days No, Reg Smoking Cessation Counseling No Assessment and Plan Extracted from: Title: Clinical Document Author: Harpreet Pulliam MD Date: 06/05/14 Urology Progress Daily [facility] Completed: May, 07:36 by Harpreet Pulliam MD RM: 232 - 1P, LESLY WILLS [id number] (: 1935) M Attending: Harpreet Pulliam MDPhone: service: Urology Service Reason for Admission: 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 He is taking po, having flatus/BM, ambulating fairly well, and his pain is well controlled. OBJECTIVE HEENT: normocephalic, atraumatic, extraocular movement intact, normal neck movement CV: RRR Resp: Normal respiratory effort GI: soft, NT, ND, incision c/d/i Skin: warm, well-perfused Extremities: moves all 4 ext within normal limits Neuro: CN2-12 without deficit Psych: A&O x3 ASSESSMENT & PLAN s/p robotic right partial nephrectomy, POD#5. 1. GI: ileus resolved, pt eating well 2. Wrist drop: neuro has evaluated and pt to have outpatient follow up 3. Activity: encouraged ambulation, PT/OT following, pt still feels a slightly unsteady. Will see if PT can see patient prior to d/c home 4. : Pt with some urinary urgency. Will follow as an outpatient 5. CVS: stable 6. Endo: pt with h/o DM and takes metformin, will as Dr. Ortiz to see what alternative (if needed) pt may have as his renal fx is still recovering from surgery 6. Dipso: likely d/c in am Ready for Discharge (Yes/No)? Gann still necessary (Yes/No): Line still necessary (Yes/No): 24hr Labs 06/05 0559 Glucose [id number] H 06/04 2041 Glucose RDW714 H 06/04 1612 Glucose IBC558 H 06/04 1030 Glucose SMM967 H VitalsTmp(F)NygtjCCVGTcV1FKT6 06/05 04:0098.277736/202919--- 06/05 00:0198.551514/377279--- 06/04 20:0098.303803/632210--- 06/04 11:5298.588516/0610797--- 06/04 07:4598.036940/506268--- 24 Hr Tmax: 98.5F (36.94c) at 06/04 11:52Vital Signs are the last 5 in the past 48 hours. DateWt(kg)Wt(lb)Ht(cm)Ht(in)Method 05/31 87.73 193.00Stated 05/24 (initial) 87.73 193.73150.88 72.00Stated I&ORecordInOutBal 05/2124hr Tot 10 880 -870 05/2024hr Tot 53 0 53 Medications (29) Active Scheduled Meds (8): 05/31/14 buPROPion 150 mg PO Q24H 05/31/14 docusate (docusate sodium 100 mg oral capsule) 100 mg PO BID 06/01/14 doxazosin 4 mg PO Daily 06/01/14 enoxaparin 40 mg SUB-Q Daily 06/14/14 influenza virus vaccine, inactivated 0.5 ml IM Daily 05/31/14 pantoprazole 40 mg PO Before Dinner 06/01/14 senna (senna 8.6 mg oral tablet) 17.2 mg PO BID 05/31/14 simvastatin 20 mg PO Bedtime Unscheduled Meds: None PRN Meds (21): 05/31/14 Al hydroxide/Mg hydroxide/simethicone (Al hydroxide/Mg hydroxide/simethicone 200 mg-200 mg-20 mg/5 mL oral suspension) 30 mL PO Q4H 05/31/14 LORazepam 1 mg PO TID 05/31/14 acetaminophen-hydrocodone (acetaminophen-hydrocodone 325 mg-5 mg oral tablet) 1 tab PO Q4H 05/31/14 bisacodyl (Dulcolax Laxative) 5 mg PO Q24H 05/31/14 diphenhydrAMINE 12.5 mg IVP Q6H 05/31/14 diphenhydrAMINE 25 mg PO Bedtime 05/31/14 fentaNYL 25 microgram IVP Q5Min 05/31/14 fentaNYL 50 microgram IVP Q5Min 05/31/14 flumazenil 0.2 mg IVP PRN 05/31/14 hydromorphone 0.5 mg IVP Q5Min 05/31/14 hydromorphone (Dilaudid) 0.5 mg IV Q3H 05/31/14 insulin aspart 1 unit SUB-Q TID-Before Meals 05/31/14 insulin aspart 2 unit SUB-Q TID-Before Meals 05/31/14 insulin aspart 3 unit SUB-Q TID-Before Meals 05/31/14 insulin aspart 4 unit SUB-Q TID-Before Meals 05/31/14 insulin aspart 5 unit SUB-Q TID-Before Meals 05/31/14 naloxone 0.04 mg IVP Q2MIN 05/31/14 ondansetron 4 mg IVP Q6H 05/31/14 promethazine + Sodium Chloride 0.9% IV 50 mL 12.5 mg IVPB Q4H 151.5 ml/hr 05/31/14 sodium chloride (Saline Flush 0.9%) 10 ml IVP PRN 05/31/14 temazepam (Restoril) 7.5 mg PO Bedtime One Time Meds: None Continuous Infusions: None
--- OUTSIDE RECORDS SUMMARY | 2019-01-14 14:19 | XMS REPORT | Summary of Care ---
Author Organization Unknown Address Unknown Phone Unavailable Encounter HQ Kristan_quintin(AUGIE) [id number] Date(s): 04/26/14 - 04/26/14 [facility] [address] [place], [place] [address] [facility] Discharge Disposition: Home Physician Attending: Florentin Kim MD Physician_Referring: Florentin Kim MD Reason for Visit CHRONIC KIDNEY DISEAGE STAGE 3 Problem List Condition Effective Dates Status [...]
--- OUTSIDE RECORDS SUMMARY | 2019-01-14 14:19 | XMS REPORT | Summary of Care ---
Author Organization Unknown Address Unknown Phone Unavailable Encounter ANTHONY Murillo(AUGIE) [id number] Date(s): 07/11/14 - 08/09/14 [facility] Discharge Disposition: Home Physician Attending: ThursdayClari MD Reason for Visit LEFT ARM, WRIST Problem List Condition Effective Dates Status Health [...]
--- OUTSIDE RECORDS SUMMARY | 2019-01-14 14:19 | XMS REPORT | Summary of Care ---
Author Organization Unknown Address Unknown Phone Unavailable Encounter HQ Kristan_quintin(AUGIE) [id number] Date(s): 01/09/15 - 01/09/15 [facility] [address] [place] [address]- Discharge Disposition: Home Physician Attending: Ramon Anderson MD Physician_Referring: Ramon Anderson MD Vital Signs No data available [...]
[2019-01-14] MEDS ORDERED: TETANUS/DIPHTHERIA TOX ADULT 0.5 ML SYR IM ONE (15:45)
[2019-01-14 16:04] VITALS: BP 167/82
== END 2019-01-14 16:14 | disposition home or self-care (01) ==
LOC: FSED 14:14
DX: S01.511A Laceration without foreign body of lip, initial encounter (principal); W18.30XA Fall on same level, unspecified, initial encounter; Y92.488 Other paved roadways as the place of occurrence of the external cause
CPT/HCPCS: 90471; 90714; 99282